=== PATIENT | male | born 1965 | race Caucasian/White ===

== ENCOUNTER 2021-08-13 21:19 | Inpatient (IN) | payer OTHER, SELFPAY ==
[2021-08-13 21:20] VITALS: BP 170/115; RESP 20; O2SAT 100; BMI 39.5
--- NOTE | 2021-08-13 21:36 | XRR_ITS ---
PROCEDURE INFORMATION: Exam: XR Chest Exam date and time: 08/13/2021 9:30 PM Age: 55 years old Clinical indication: Prior surgery; Surgery type: Cabg; Patient HX: Cardiac arrest. Cpr in progress and intubated prior to er arrival. TECHNIQUE: Imaging protocol: XR of the chest. Views: 1 view. COMPARISON: No relevant prior studies available. FINDINGS: Tubes, catheters and devices: Endotracheal tube terminates in the right main bronchus. Lungs: No evident consolidation limited by overlying support devices. Pleural spaces: No pleural effusion. No pneumothorax. Heart/Mediastinum: Moderate cardiomegaly. Bones/joints: Visualized osseous structures are intact. XR/XR chest 1V portable [id number] IMPRESSION: 1. Endotracheal tube terminates in the right main bronchus. 2. Moderate cardiomegaly.
--- NOTE | 2021-08-13 21:37 | ECG_ITS ---
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 Measurements Intervals [place] Rate: 107 P: 45 AL: 174 QRS: 33 QRSD: 207 T: 14 QT: 417 QTc: 557 Interpretive Statements Possible atrial flutter with 2-1 block and PVCs INTRAVENTRICULAR CONDUCTION DELAY [130+ ms QRS DURATION] INFERIOR MYOCARDIAL INFARCTION , OF INDETERMINATE AGE [40+ ms Q WAVE AND/OR ST/T ABNORMALITY IN II/aVF] No previous ECG available for comparison Electronically Signed On 08-13-2021 22:09:56 CDT by Jazmine Lal M.D. [id number]
[2021-08-13 21:42] LABS: ABG PCO2 50.3 mmHg (35-45); Arterial Blood Gas Hematocrit 43.4 % (42-52); Base Excess ABG -12.3 mmol/L (-2.0-2.0); Blood Gas Allen Test Pos; Blood Gas Sample Site Radial, left; Blood Gas Sample Type Arterial; HCO3 ABG 16.9 mmol/L (22-26); Oxygen Device AMBU
[2021-08-13 21:48] VITALS: RESP 30
[2021-08-13 21:49] LABS: Basophils # 0.1 10^3/uL (0.0-0.1); Basophils % 0.6 %; Eosinophils # 0.1 10^3/uL (0.0-0.8); Eosinophils % 0.7 %; Hematocrit 45.7 % (42.0-52.0); Hemoglobin 14.6 g/dL (11.7-16.6); Lymphocytes % 54.1 %; Mean Corpuscular HGB Conc 31.9 g/dL (30.0-36.0); Mean Corpuscular Hemoglobin 30.5 pg (28.0-34.0); Mean Corpuscular Volume 95.6 fl (80-94); Mean Platelet Volume 10.4 fL (7.4-10.4); Monocytes # 0.6 10^3/uL (0.2-0.9); Monocytes % 3.6 %; Neutrophils # 5.83 10^3/uL (1.8-7.7); Neutrophils % 34.8 %; Nucleated Red Blood Cells % 0.2 %; Platelet Count 279 10^3/cmm (130-400); Red Blood Count 4.78 10^6/uL (4.1-5.3); Red Cell Distribution Width 12.9 % (12.1-15.1); White Blood Count 16.7 10^3/uL (4.0-10.0)
[2021-08-13] MEDS: sodium chloride 0.9% 1,000 ML 999 ML IV ×2 (21:49→21:54)
[2021-08-13] MEDS: EPINEPHrine 2.5 MG in sodium chloride 0.9% 250 ML 6 MG IV (21:53)
[2021-08-13 22:00] LABS: Troponin(5th) Baseline 83 ng/L (0-15)
[2021-08-13 22:01] LABS: INR 1.19 (0.8-1.2)
--- NOTE | 2021-08-13 22:07 | USCV_ITS ---
Marco Antonio Hairston Age: 55 Gender: M : 1965 Exam Date: 08/13/2021 22:21 Ordering Phys: Riky Hall DO Technologist: Asim Phelps Exam Location: [facility] – [place] Indication: cardiac arrest BP: 136 / 95 HR: 111 Rhythm: Sinus Technical Quality: Adequate MEASUREMENTS (Male / Female) Normal Values 2D ECHO LV Diastolic Diameter PLAX 6.6 cm 4.2 - 5.9 / 3.9 - 5.3 cm LV Systolic Diameter PLAX 6.3 cm IVS Diastolic Thickness 1.3 cm 0.6 - 1.0 / 0.6 - 0.9 cm IVS Systolic Thickness 1.5 cm LVPW Diastolic Thickness 2.0 cm 0.6 - 1.0 / 0.6 - 0.9 cm LVPW Systolic Thickness 1.7 cm LVOT Diameter 2.0 cm LV Ejection Fraction 2D Teich 7.4 % LV Ejection Fraction MOD 2C -4.1 % LV Ejection Fraction 2C AL -3.4 % LA Diameter 3.1 cm LA Width 4.0 cm LA Height 6.4 cm Aorta at Sinotubular Diameter 3.2 cm IVC Diameter 1.3 cm M-MODE Aortic Annulus Diameter 3.8 cm LA Ao Ratio MM 0.9 MV E Point Septal Separation 3.2 cm DOPPLER Right Atrial Pressure 13.0 mmHg FINDINGS Left Ventricle Left ventricle is dilated. LV systolic function is severely reduced with EF of 20-25%. Severe global hypokinesis. Right Ventricle Right ventricle is dilated Right Atrium The right atrium is normal in size. Left Atrium The left atrium is normal in size. Mitral Valve Grossly normal without significant stenosis or prolapse. There is no mitral regurgitation. Aortic Valve Not well visualized Tricuspid Valve Grossly normal Pulmonic Valve Not well visualized Pericardium Normal pericardium without effusion. Aorta Normal ascending aorta dimension. IVC CONCLUSIONS Techically limited quality echocardiogram because of poor ultrasonic windows LV is dilated. LV systolic function is severely reduced with EF of 20-25%. Severe global hypokinesis. RV is dilated No comparison studies are available Reggie Wood MD (Electronically Signed) Final Date: 14 Aug 2021 20:43 S
[2021-08-13 22:08] LABS: Alanine Aminotransferase 233 U/L (0-41); Albumin Level 4.1 g/dL (3.5-5.2); Alkaline Phosphatase 113 IU/L (40-130); Blood Urea Nitrogen 12 mg/dL (6-20); Calcium 8.2 mg/dL (8.5-10.5); Carbon Dioxide 23 mmol/L (22-29); Chloride 100 mmol/L (98-107); Globulin 2.4 g/dL (1.3-4.6); Glucose 297 mg/dL (65-115); NT Pro B Type Natriuretic Pept 702 pg/mL (0-125); Osmolality Calculated 317 mOsm/kg (285-295); Sodium 148 mmol/L (136-145); Total Bilirubin 0.4 mg/dL (0.15-1.2); Total Protein 6.5 g/dL (6.6-8.7)
[2021-08-13 22:11] LABS: D Dimer 13.04 ug/mIFEU (0-0.59)
[2021-08-13 22:15] LABS: Anion Gap 28.5 (5-19); Aspartate Amino Transferase 182 U/L (0-40); Creatine Phosphokinase 321 U/L (39-308); Potassium 3.5 mmol/L (3.5-5.1)
--- NOTE | 2021-08-13 22:15 | W.ED.CPR ---
HPI - CPR General: Chief Complaint: Cardiac Arrest/CPR Stated Complaint: CARDIAC ARREST Time Seen by Provider: 08/13/21 21:36 Source: family and EMS History of Present Illness: 55-year-old male who collapsed at a local car race. He has a history of coronary disease status post coronary artery bypass grafting, three-vessel, sometime around a year and a half ago. He arrives unresponsive, with a pulse. In the field, he was found to initially have no pulse, and was not breathing. He was in ventricular fibrillation on first rhythm check. He has received multiple defibrillation shocks, multiple doses of epinephrine, amiodarone twice, and lidocaine once. He arrived with a rhythm and a pulse, which had been ongoing for around 10 minutes, which is the longest he had had a pulse since he went down. He had intermittent short durations of pulsatile rhythm in the hour between his arrest and arrival here. He had also received multiple doses of bicarbonate. MD complaint: found unresponsive and collapsed during activity Onset (ago): minute(s) Timing confirmed by: other Place: sports venue Bystander CPR performed: Yes AED applied by bystander/certified surgical tech/first assistant: Yes Shock advised: Yes Number of shocks delivered: >3 Initial findings in the field: unresponsive ROSC in the field: Yes Associated injuries: No Review of Systems General: Reports: ROS unobtainable due to endotracheal tube and ROS unobtainable due to medical condition Physical Exam Const: NUTRITIONAL APPEARANCE: obese HENMT: COMMON NORMALS: normocephalic, atraumatic and Normal external nose present HEAD & SCALP: normocephalic and atraumatic NOSE: Normal external nose present Eye: OTHER: Pupils are sluggish but equally reactive. Chest: CHEST: Yes Symmetrical chest wall rise Resp: EFFORT & INSPECTION: No tracheal deviation AUSCULTATION: rhonchi Cardio: OTHER: no pulse on arrival. Extremity: GENERAL: No deformity Neuro: CAL COMA SCALE: document GCS findings Cal coma scale eye opening: None [place] coma scale verbal response: None [place] coma scale motor response: None [place] coma scale total score: 3 Procedures Central Line Placement Right IJ: Time Out Performed: No Patient Placed on Monitor/Pulse Ox: Yes Prep: mask, gown and gloves Central Line Prep: Chlorhexidine scrub and sterile drapes applied Local Anesthetic: lidocaine 1% Amount of anesthesia used (mL): 3 Ultrasound Used for Placement: Yes Central Line Lumen Inserted: triple Post Procedure: sutured in place, good blood return, all ports aspirated, flushed, capped and sterile dressing applied Post Procedure X-Ray: tip of catheter in good position and no pneumothorax seen Patient Tolerated Procedure: well and no complications Course Consultations: Consultation #1: Nina Time: 21:36 Consultation #2: Diego Vital Signs: Vital signs: Vital Signs Temperature 98.6 F 08/14/21 02:42 Pulse Rate 108 H 08/14/21 02:42 Respiratory Rate 17 08/14/21 03:08 Blood Pressure 103/66 08/14/21 02:42 Pulse Oximetry 97 08/14/21 03:08 [facility] - Cardiac Arrest/CPR Medical Decision Making Who was [id number] gentleman with a history of coronary disease and down at a local car race. He had received resuscitative efforts for about an hour in the field prior to his arrival here. He had had multiple defibrillations, multiple doses of epinephrine, multiple doses of amiodarone, and a dose of lidocaine for around 10 minutes prior to arrival, he had had an organized rhythm and a pulse. This was lost shortly after his arrival in the trauma room. Chest compressions were resumed immediately, and the patient was found to be in V. fib. He was given another defibrillation, and another milligram of epinephrine. At the next rhythm check, he appeared to be in PEA. ACLS protocol was followed. At the next rhythm check, PEA continued. By the third rhythm check, the patient resumed an organized rhythm with a pulse. The patient was given a fluid bolus. He was given bicarbonate. Chest x-ray was shot, showing intubation with an ET tube that was a little deep. It was retracted to an appropriate level above the mack. Blood pressure was obtained. EKG showed sinus tachycardia with an significant intraventricular conduction delay and Q waves in the inferior leads. EKG was sent to cardiology shortly after the patient arrived and was resuscitated. Recommendations at that point were medical management. First troponin was elevated, delta troponin at 2 hours is 257.6. Initial pH was 7.135. The patient began overbreathing the ventilator, move his hands, and shake his head. He had to be sedated for this. Versed and fentanyl were used. Cardiology was further consulted, and recommendations were antiarrhythmic, with amiodarone, but if possible, lidocaine would be favorable over amiodarone. We do not have a lidocaine infusion protocol however. Anticoagulation was suggested, so after CT of the head was deemed negative for hemorrhage, heparin drip was ordered. Central line was placed. D-dimer initially was 16, so the patient underwent CTA of the chest to rule out massive PE as a cause of cardiac arrest, which was negative. It did show significant pulmonary edema. Bedside echo was performed. Cardiology was aware of this as well. Continued recommendations were medical management, anticoagulation, antiarrhythmic, and to see how he fares neurologically he went to the ICU. At 1 point, he had a brief episode of ventricular fibrillation again, for which he was cardioverted, and given epinephrine. ROSC was obtained after 1 round of CPR. No other instances of arrhythmia or pulselessness were witnessed in the ER following that episode Lab Data : 08/13/21 21:30 08/13/21: Radiology Impressions Head CT 08/13/21 22:18 IMPRESSION: There are no acute intracranial findings. Chest CTA 08/13/21 23:28 IMPRESSION: 1. There is no evidence for pulmonary emboli. 2. Findings suggesting pulmonary edema. Laboratory Results WBC 16.7 10^3/uL (4.0-10.0) H 08/13/21: RBC 4.78 10^6/uL (4.1-5.3) 08/13/21: Hgb 14.6 g/dL (11.7-16.6) 08/13/21: Hct 45.7 % (42.0-52.0) 08/13/21: MCV 95.6 fl (80-94) H 08/13/21: MCH 30.5 pg (28.0-34.0) 08/13/21: MCHC 31.9 g/dL (30.0-36.0) 08/13/21: RDW 12.9 % (12.1-15.1) 08/13/21: Plt Count 279 10^3/cmm (130-400) 08/13/21: MPV 10.4 fL (7.4-10.4) 08/13/21: Neut % (Auto) 34.8 % 05/27/22 21:30 Lymph % (Auto) 54.1 % 08/13/21 21:30 [place] % (Auto) 3.6 % 08/13/21 21:30 Eos % (Auto) 0.7 % 08/13/21 21:30 Baso % (Auto) 0.6 % 08/13/21 21:30 Neut # (Auto) 5.83 10^3/uL (1.8-7.7) 08/13/21 21: Lymph # (Auto) 9.0 10^3/uL (0.8-4.8) H 08/13/21 21:30 [place] # (Auto) 0.6 10^3/uL (0.2-0.9) 08/13/21 21: Eos # (Auto) 0.1 10^3/uL (0.0-0.8) 08/13/21 21: Baso # (Auto) 0.1 10^3/uL (0.0-0.1) 08/13/21 21: Nucleated RBC % (auto) 0.2 % 08/13/21 21: Nucleated RBCs # 0.0 /100WBC 08/13/21 21:30 PT 15.40 SECONDS (12.1-14.9) H 08/13/21 21: INR 1.19 (0.8-1.2) 08/13/21 21: APTT 27.8 SECONDS (23.9-36.7) 08/13/21 21: D-Dimer 13.04 ug/mIFEU (0-0.59) H 08/13/21 21: Specimen Type Arterial 08/13/21 21:31 Sample Site Radial, left 08/13/21: ABG pCO2 50.3 mmHg (35-45) H 08/13/21 21: ABG pO2 55.0 mmHg (80.0-100.0) L 08/13/21: ABG HCO3 16.9 mmol/L (22-26) L 08/13/21: ABG Base Excess -12.3 mmol/L (-2.0-2.0) L 08/13/21 21: Praveen Test Pos 08/13/21 21: Hematocrit 43.4 % (42-52) 08/13/21 21:31 O2 Delivery Device Ambu 08/13/21 21:31 Framing Inspector ID Buttr 08/13/21 21:31 Sodium 148 mmol/L (136-145) H 08/13/21 21:30 Potassium 3.5 mmol/L (3.5-5.1) 08/13/21 21:30 Chloride 100 mmol/L (98-107) 08/13/21 21:30 Carbon Dioxide 23 mmol/L (22-29) 08/13/21 21:30 Anion Gap 28.5 (5-19) H 08/13/21 21:30 BUN 12 mg/dL (6-20) 08/13/21 21:30 Creatinine 1.1 mg/dL (0.7-1.2) 08/13/21 21:30 GFR Calculation 69.0 mL/min (90-130) L 08/13/21 21:30 Glucose 297 mg/dL (65-115) H 08/13/21 21:30 Estimat Average Glucose 111 08/13/21 21:30 Hemoglobin A1c 5.5 % (4.0-6.0) 08/13/21 21:30 Calculated Osmolality 317 mOsm/kg (285-295) H 08/13/21 21:30 Lactate 9.3 mmol/L (0.5-2.2) H* 08/13/21 22:10 Calcium 8.2 mg/dL (8.5-10.5) L 08/13/21 21:30 Total Bilirubin 0.4 mg/dL (0.15-1.2) 08/13/21 21:30 AST 182 U/L (0-40) H 08/13/21 21:30 ALT 233 U/L (0-41) H 08/13/21 21:30 Alkaline Phosphatase 113 IU/L (40-130) 08/13/21 21:30 Creatine Kinase 321 U/L (39-308) H* 08/13/21 21:30 Troponin T Baseline 83 ng/L (0-15) H 08/13/21 21:30 Troponin T 120 Minute 340.6 ng/L (0-15) H 08/14/21 00:00 Delta Troponin T 257.6 ABS# (0-10) H* 08/14/21 00:00 NT-Pro-B Natriuret Pep 702 pg/mL (0-125) H 08/13/21 21: Total Protein 6.5 g/dL (6.6-8.7) L 08/13/21 21: Albumin 4.1 g/dL (3.5-5.2) 08/13/21 21: Globulin 2.4 g/dL (1.3-4.6) 08/13/21 21:30 Urine Color Yellow (Yellow) 08/13/21 23:30 Urine Appearance Sl hazy (CLEAR) 08/13/21 23:30 Urine pH 7 (5-7) 08/13/21 23:30 Ur Specific [place] 1.010 (1.005-1.030) 08/13/21 23: Urine Protein 3+ (Negative) H 08/13/21 23: Urine Glucose (UA) 2+ (Normal) H 08/13/21 23: Urine Ketones Negative (Negative) 08/13/21 23: Urine Blood 3+ (Negative) H 08/13/21 23: Urine Nitrate Negative (Negative) 08/13/21 23: Urine Bilirubin Neg (Negative) 08/13/21 23:30 Urine Urobilinogen Norm mg/dL (Negative) 08/13/21 23:30 Ur Leukocyte Esterase Negative (Negative) 08/13/21 23: Urine RBC >100 /hpf (0-2) H 08/13/21 23:30 Urine WBC >100 /hpf (0-5) H 08/13/21 23:30 Ur Squamous Epith Cells 0-4 /hpf (0-5) H 08/13/21 23: Amorphous Sediment Not Reportable 08/13/21 23: Urine Bacteria 4+ /hpf (NONE) H 08/13/21 23:30 Critical Care Time Critical Care Time: Critical Care Time: Yes Total Critical Care Time: 75 Attestation: This case had a high probability of a clinically significant, sudden, or life threatening deterioration of this patient's condition which required my full and direct attention, intervention and personal management. Time is independent of any procedures performed including central line placement. Discharge Plan Discharge Patient Disposition: Admitted As Inpatient Admit Provider: Yasmine Cortez Clinical Impression: Cardiac arrest Condition: Stable Coding Level of Care Code ED Director Of Teaching And Learning for Chg Fwd Exam Detailed
--- NOTE | 2021-08-13 22:18 | CTR_ITS ---
PROCEDURE INFORMATION: Exam: CT Head Without Contrast Exam date and time: 08/13/2021 11:52 PM Age: 55 years old Clinical indication: Other: Unresponsive; Additional info: Unresponsive. Post code TECHNIQUE: Imaging protocol: Computed tomography of the head without contrast. Radiation optimization: All CT scans at this facility use at least one of these dose optimization techniques: automated exposure control; mA and/or kV adjustment per patient size (includes targeted exams where dose is matched to clinical indication); or iterative reconstruction. COMPARISON: No relevant prior studies available. RADIATION DOSE METRICS: Total DLP (mGy-cm): 8.61 FINDINGS: Tubes, catheters and devices: An endotracheal tube and orogastric tube are present. Brain: Normal. No hemorrhage. Unremarkable white matter. No mass effect. Cerebral ventricles: No ventriculomegaly. Paranasal sinuses: Minimal fluid and mucoperiosteal thickening is seen within the ethmoidal sinuses. Mastoid air cells: There is partial opacification of the left mastoid sinuses. Bones/joints: Unremarkable. No acute fracture. Soft tissues: Unremarkable. CT/CT head wo con* [id number] IMPRESSION: There are no acute intracranial findings.
[2021-08-13 22:22] LABS: Slide Review Slide Review Perform
--- NOTE | 2021-08-13 22:27 | XRR_ITS ---
PROCEDURE INFORMATION: Exam: XR Chest Exam date and time: 08/13/2021 10:06 PM Age: 55 years old Clinical indication: Device placement; Ett placement (vent status); Prior surgery; Surgery type: Cabg; Patient HX: Verify et placement due to mild dislodgement. ; Additional info: Verify tube placement TECHNIQUE: Imaging protocol: XR of the chest. Views: 1 view. COMPARISON: CR XR chest 1V portable [id number] 08/13/2021 9:30 PM FINDINGS: Tubes, catheters and devices: An endotracheal tube is placed with its tip approximately 5 cm from the mack. Transcutaneous pacemaker leads overlie the chest. EKG leads overlie the chest. A nasogastric tube is present with its tip at least in the proximal stomach. Lungs: There is indistinctness of the pulmonary vasculature, peribronchial cuffing and bilateral increased interstitial opacities, findings suggesting pulmonary edema. Pleural spaces: Unremarkable. No pleural effusion. No pneumothorax. Heart/Mediastinum: The cardiac profile is prominent. Bones/joints: Unremarkable. XR/XR chest 1V portable [id number] IMPRESSION: 1. The endotracheal tube tip is approximately 5 cm from the mack. 2. Findings suggesting pulmonary edema.
[2021-08-13] MEDS: midazolam 1 mg/mL INJ 2 mL 4 MG IVP (22:33)
[2021-08-13 22:36] LABS: Partial Thromboplastin Time 27.8 SECONDS (23.9-36.7)
[2021-08-13 22:39] VITALS: BP 136/95; PULSE 100; RESP 14; O2SAT 95
[2021-08-13 22:46] LABS: Lactate (Lactic Acid level) 9.3 mmol/L (0.5-2.2)
--- NOTE | 2021-08-13 22:56 | XRR_ITS ---
PROCEDURE INFORMATION: Exam: XR Chest Exam date and time: 08/13/2021 11:00 PM Age: 55 years old Clinical indication: Other vascular access device placement or adjustment; Central line, non-tunnelled; Additional info: Central line placement TECHNIQUE: Imaging protocol: XR of the chest. Views: 1 view. COMPARISON: CR XR chest 1V portable [id number] 08/13/2021 10:06 PM FINDINGS: Tubes, catheters and devices: An endotracheal tube is placed with its tip 5.8 cm from the mack. A right internal jugular vein central venous line is placed with its tip at the level of the superior vena cava. A nasogastric tube is present with its tip at least in the proximal stomach. Transcutaneous pacemaker lead overlies the left heart border. EKG leads overlie the chest. Lungs: There is continued prominence and indistinctness of the central pulmonary vasculature, peribronchial cuffing and increased interstitial opacities, findings compatible with pulmonary edema. Pleural spaces: Unremarkable. No pleural effusion. No pneumothorax. Heart/Mediastinum: Unremarkable. No cardiomegaly. Bones/joints: Status post median sternotomy. XR/XR chest 1V portable [id number] IMPRESSION: 1. Right internal jugular vein central venous line placed with tip at the level of the superior vena cava. Otherwise stable life support tubing. 2. Findings compatible with pulmonary edema.
--- NOTE | 2021-08-13 23:25 | XRR_ITS ---
PROCEDURE INFORMATION: Exam: XR Chest Exam date and time: 08/13/2021 11:17 PM Age: 55 years old Clinical indication: Other: Post code TECHNIQUE: Imaging protocol: XR of the chest. Views: 1 view. COMPARISON: CR (CHEST, ) 08/13/2021 11:00 PM FINDINGS: Tubes, catheters and devices: Endotracheal tube tip is approximately 4 cm from the mack. Stable positioning of life support tubing. Transcutaneous pacemaker lead overlies the left cardiac border. Lungs: Prominence and indistinctness of the pulmonary vasculature, peribronchial cuffing and increased interstitial opacities compatible with pulmonary edema. This finding is slightly worse compared with earlier chest radiographs today. Pleural spaces: Unremarkable. No pleural effusion. No pneumothorax. Heart/Mediastinum: Unremarkable. No cardiomegaly. Bones/joints: Unremarkable. XR/XR chest 1V portable [id number] IMPRESSION: 1. Worsening pulmonary edema 2. Stable life support tubing
--- NOTE | 2021-08-13 23:28 | CTR_ITS ---
PROCEDURE INFORMATION: Exam: CTA Chest With Contrast Exam date and time: 08/13/2021 11:56 PM Age: 55 years old Clinical indication: Shortness of breath; Prior surgery; Additional info: Chest pain TECHNIQUE: Imaging protocol: Computed tomographic angiography of the chest with contrast. 3D rendering (Not supervised by radiologist): MIP and/or 3D reconstructed images were created by the technologist. Radiation optimization: All CT scans at this facility use at least one of these dose optimization techniques: automated exposure control; mA and/or kV adjustment per patient size (includes targeted exams where dose is matched to clinical indication); or iterative reconstruction. Contrast material: OMNI 350; Contrast volume: 40 ml; Contrast route: INTRAVENOUS (IV); COMPARISON: CR XR chest 1V portable [id number] 08/13/2021 11:17 PM RADIATION DOSE METRICS: Total DLP (mGy-cm): 901.08 FINDINGS: Tubes, catheters and devices: A central line is placed via the right internal jugular vein with its tip at the level of the superior cavoatrial junction. An endotracheal tube is placed with its tip approximately 5 cm from the mack. A nasogastric tube is present with its tip in the proximal stomach. Pulmonary arteries: There is mild prominence of the pulmonary vasculature. Aorta: Unremarkable. No aortic aneurysm. No aortic dissection. Lungs: Ground-glass opacities are seen in the upper hemithoraces bilaterally with strandy and patchy opacities and some consolidation seen in the hemithoraces posteriorly, findings that suggest pulmonary edema. Pleural spaces: Unremarkable. No pneumothorax. No pleural effusion. Heart: Diffuse calcifications are seen within the coronary arteries. Lymph nodes: Unremarkable. No enlarged lymph nodes. Bones/joints: Unremarkable. No acute fracture. Soft tissues: Unremarkable. CT/CT angio chest PE protcl [id number] IMPRESSION: 1. There is no evidence for pulmonary emboli. 2. Findings suggesting pulmonary edema.
--- NOTE | 2021-08-13 23:37 | ECG_ITS ---
[facility] Test Date: 2021-08-13 Pat Name: Marco Antonio Hairston Department: Room: Gender: Male Resident Assistant Cna: : 1965 Requested By: Riky Lopes Order Number: [id number] Estrada MD: Reggie Wood M.D. Measurements Intervals [place] Rate: 104 P: 43 MS: 193 QRS: 35 QRSD: 174 T: 15 QT: 386 QTc: 509 Interpretive Statements SINUS TACHYCARDIA WITH OCCASIONAL VENTRICULAR PREMATURE COMPLEXES POSSIBLE LEFT ATRIAL ENLARGEMENT [-0.1mV P-WAVE IN V1/V2] INTRAVENTRICULAR CONDUCTION DELAY [130+ ms QRS DURATION] INFERIOR MYOCARDIAL INFARCTION , OF INDETERMINATE AGE [40+ ms Q WAVE AND/OR ST/T ABNORMALITY IN II/aVF] Compared to ECG 08/13/2021 21:30:24 No significant changes Electronically Signed On 08-15-2021 20:42:02 CDT by Reggie Wood M.D. [id number] f
[2021-08-14] VITALS (119 sets, daily range): BP systolic 77–166; BP diastolic 54–123; PULSE 82–120; RESP 14–21; TEMP 35.7–38.8; O2SAT 91–100
[2021-08-14 00:02] LABS: Add Urine Microscopic? YES; Bilirubin Urine Neg (Negative); Blood Urine 3+ (Negative); Glucose Urine UA 2+ (Normal); Ketones Urine Negative (Negative); Leukocyte Esterase Urine Negative (Negative); Nitrate Urine Negative (Negative); Protein Urine 3+ (Negative); Urine Appearance SL Hazy (CLEAR); Urine Color Yellow (Yellow); Urobilinogen Urine Norm (Negative); pH Urine 7 (5-7)
[2021-08-14] MEDS: iohexol 350 mg/mL 100 mL Btl IV (00:02)
[2021-08-14 00:05] LABS: Add Urine Culture? Yes; Bacteria Urine 4+ /hpf; RBC Urine >100 /hpf (0-2); Squamous Epithelial Cell Urine 0-4 /hpf (0-5); WBC Urine >100 /hpf (0-5)
--- NOTE | 2021-08-14 00:14 | PC.NURSE ---
VF @ 2311- pt in VF on the monitor. Compressions started, defib 200j per Dr Hall @ 2312, Epi 1mg iv push given. Compressions continued for 2 minutes. Pulse check @ 2314- pt found to have a pulse. IV amiodarone 0.5mcg/min and Epi 1mcg/min continued through this time. Present in room Dr Hall, Dr Juan, Jeane RN, Braxton, rn, Pernell, rn and myself. Chest xray, ekg taken and orders for CTA placed by provider. Respiratory therapy, Jenae OVERTON, Braxton RN , and myself transported the patient for CT scan. Pt was given Fentanyl bolus 100mcg given per verbal order Dr Hall for vent compliance. Vitals monitored throughout CT scan.
[2021-08-14 00:45] LABS: Troponin 5 2HR 340.6 ng/L (0-15); Troponin 5 2HR Delta 257.6 ABS# (0-10)
[2021-08-14] MEDS: heparin drip 25,000 UNIT/500 ML PREMIX 35.56 UNIT IV (01:16)
--- NOTE | 2021-08-14 01:36 | P.HP_ITS ---
Providers/Chief Complaint Admitting Physician: Yasmine Cortez DO Chief Complaint: CARDIAC ARREST History of Present Illness Patient is a 55-year-old male who was transferred to the emergency department after going into cardiac arrest while at the car races. Per documentation from the emergency department physician, the patient received many rounds of CPR including defibrillation, epinephrine, and chest compressions. Unfortunately at the time of my encounter with the patient he is sedated and intubated. He presents for further evaluation Review of Systems General: Reports: 10 or more systems reviewed and unremarkable except in HPI and below Medications/Allergies Allergies Allergy/AdvReac Type Severity Reaction Status Date / Time No Known Allergies Allergy Verified 08/13/21 21:42 Vitals/I&O/Wt Last Vital Signs Pulse 100 08/13/21 22:39 Resp 21 H 08/14/21 01:10 BP 136/95 08/13/21 22:39 Pulse Ox 95 08/13/21 22:39 08/13/21 08/13/21 08/14/21 14:59 22:59 06:59 Intake Total 83.25 / 83.25 2.75 / 86.00 Balance 83.25 / 83.25 2.75 / 86.00 Weight last 48 hrs Weight 127.006 kg Physical Exam Narrative: General: -Alert -No acute distress -No dyspnea -No tachypnea Head: -Atraumatic -Normocephalic Eyes: -Pupils equally round and reactive to light and accommodation -Extraocular muscles intact Neurological: -Cranial nerves II-XII intact Neck: -No jugular venous distention -No thyromegaly -No cervical lymphadenopathy Heart: -Regular rate -Regular rhythm -No murmurs -No gallops -No rubs Lungs: -No wheeze -No rhonchi -No rales ? Abdomen: -Normal bowel sounds in all four quadrants -No rebound -No guarding -No tenderness Extremities: -2/4 pulse in all four extremities -No clubbing -No cyanosis -No edema -No calf tenderness present bilaterally -Negative Vasyl?s sign bilaterally Musculoskeletal: -5/5 bilateral upper extremity strength -5/5 bilateral lower extremity strength -Sensorium of bilateral upper extremities are equal and intact -Sensorium of bilateral lower extremities are equal and intact ? Additional Details / Additional Findings / Exceptions / Miscellaneous: Urinary Catheter Management: Gordon: Cath Placed During This Visit: yes Urinary Catheter Date of Insertion: 08/13/21 Urinary Catheter Time of Insertion: 21:45 Data : 08/13/21 21:30 08/13/21 21:30 A&P Assessment and plan (1) Cardiac arrest: Status: Acute Plan Status post cardiac arrest with successful resuscitation 3 resultant intubation. Uncertain etiology at this time. As noted that patient was in ventricular fibrillation. The emergency department physician has notified me that the customer solutions architect has evaluate the patient the emergency department. Sedation with IV fentanyl per protocol plus IV Versed per protocol. Will continue IV amiodarone per protocol results of IV Levophed drip per protocol. Will check chest x-ray?portable daily while the patient remains intubated. Will check ABG intermittently and adjust mechanical ventilation settings accordingly. Turn every 2 hours. Current ventilator settings as of 1:38 AM on August 06, 2021: Mode: CMV. Rate: 14. Tidal volume: 550. FiO2: 100%. PEEP: 8. Elevated troponin, query ACS. Patient has known history of coronary artery disease, status post CABG. Will monitor patient on telemetry and checks her cardiac enzymes. Check TSH, free T4, magnesium level. In the morning we will recheck EKG and check fasting lipid panel. IV heparin drip per protocol plus aspirin 81 Mill grams NG daily. No beta-hernan or nitroglycerin due to hypotension necessitating Levophed. No statin at this time due to transaminitis which may be due to shock liver and/or rhabdomyolysis from resuscitation. Echocardiogram pending Hyponatremia. We will monitor sodium level intermittently. No IV fluids at this time given the fact that the patient has pulmonary edema Coagulopathy. Will monitor PT/INR periodically Pneumonia/concern for aspiration. Blood culture ?2 pending. Azithromycin 500 Mill grams IV daily plus Rocephin 1 g IV daily Microscopic hematuria. Outpatient follow-up with urology upon discharge Macrocytosis. TSH, free T4, B12, folate level pending Hyperglycemia. Query diabetes versus acute stress reaction. Hemoglobin A1c pending. Will check fasting glucose every before meals and at bedtime and provide insulin sliding scale Obesity. The patient will be counseled regarding lifestyle modification Transaminitis. This may be due to shock liver from cardiac arrest and/or rhabdomyolysis due to cardiac resuscitation. Will monitor LFTs periodically with CMP along with creatine kinase. Right upper quadrant ultrasound pending Coronary edema. Strict I/O. Daily weight. Echo cardiac pending. IV Lasix drip at 2.5 Mill grams per hour DVT Proflex is. IV heparin drip per protocol Attestations Medical Necessity Statement*: The patient's anticipated length of stay is >2 midnights for further evaluation of his cardiopulmonary arrest Coding Level of Care Code Acute Ice Puller for [facility] Diagnoses Cardiac arrest I46.9
[2021-08-14] MEDS: midazolam 1 mg/mL INJ 2 mL 4 MG IVP (01:54)
[2021-08-14 02:30] LABS: Ammonia 58 umol/L (16-60)
[2021-08-14 02:38] LABS: Estmated Average Glucose 111; Hemoglobin A1C 5.5 % (4.0-6.0)
--- NOTE | 2021-08-14 02:39 | USR_ITS ---
PROCEDURE INFORMATION: Exam: US Abdomen, Limited; Right Upper Quadrant Exam date and time: 08/14/2021 3:45 AM Age: 55 years old Clinical indication: Abnormal findings; Abnormal lab test; Elevated liver enzymes; Additional info: Ruq US: Elevated lft TECHNIQUE: Imaging protocol: US abdomen. Real time ultrasound with image documentation. Limited exam focused on the right upper quadrant. COMPARISON: CT angio chest PE protcl [id number] 08/13/2021 11:56 PM FINDINGS: Liver: Normal. No masses. Gallbladder: Normal. No gallstones. There is no gallbladder wall thickening. Biliary ducts: Normal. No stones. No dilation. Pancreas: Visualized pancreas is unremarkable. Right kidney: Normal. No mass. No hydronephrosis. US/US abdomen limited [id number] IMPRESSION: No acute findings.
--- NOTE | 2021-08-14 02:40 | XRR_ITS ---
PROCEDURE INFORMATION: Exam: XR Chest Exam date and time: 08/14/2021 2:51 AM Age: 55 years old Clinical indication: Other: Chest assymetry; Prior surgery; Surgery type: Cabg; Patient HX: Visual assymetrical appearance of anterior chest wall. Central line and og in place. Intubated. ; Additional info: Chest assymmetry TECHNIQUE: Imaging protocol: XR of the chest. Views: 1 view. COMPARISON: CR XR chest 1V portable [id number] 08/13/2021 11:17 PM FINDINGS: Tubes, catheters and devices: An endotracheal tube is placed with its tip approximately 4 cm from the mack. An orogastric tube is present, its tip at least extending into the proximal stomach. A right internal jugular vein central venous line is placed with its tip at the level of the superior cavoatrial junction. Transcutaneous pacemaker lead overlies the left cardiac border. EKG leads overlie the chest. Lungs: There is mild prominence of the pulmonary vasculature with increased interstitial opacities present in the mid lower hemithoraces, findings suggesting pulmonary edema. Some strandy opacities are present in the lower hemithoraces likely representing atelectasis. Pleural spaces: The left hemidiaphragm is obscured possibly secondary to a small left pleural effusion. Heart/Mediastinum: Unremarkable. No cardiomegaly. Bones/joints: Unremarkable. XR/XR chest 1V portable [id number] IMPRESSION: 1. Mildly prominent pulmonary vasculature increased interstitial opacities, findings suggesting pulmonary edema. 2. Strandy opacities in the lung bases likely represents atelectasis. 3. Probable small left pleural effusion 4. Stable placement of life support tubing.
[2021-08-14 02:50] LABS: Folate Level 13.3 ng/mL (4.5-32.2)
[2021-08-14 02:51] LABS: Lipase 28 U/L (13-60); Magnesium 1.9 mg/dL (1.7-2.3); Thyroid Stimulating Hormone 2.88 uIU/mL (0.27-4.20); Vitamin B12 492 pg/mL (232-1245)
[2021-08-14 03:18] LABS: Free T4 Free Thyroxine 1.47 ng/dL (0.82-1.77)
--- NOTE | 2021-08-14 03:37 | ECG_ITS ---
[facility] Test Date: 2021-08-13 Pat Name: Marco Antonio Hairston Department: Room: Gender: Male Director Of Income Tax: : 1965 Requested By: Riky Lopes Order Number: [id number] Estrada MD: Reggie Wood M.D. Measurements Intervals [place] Rate: 123 P: CA: QRS: 43 QRSD: 168 T: -5 QT: 343 QTc: 492 Interpretive Statements ATRIAL FLUTTER WITH RAPID VENTRICULAR RESPONSE WITH ABERRANT CONDUCTION OR VENTRICULAR PREMATURE COMPLEXES INTRAVENTRICULAR CONDUCTION DELAY [130+ ms QRS DURATION] INFERIOR MYOCARDIAL INFARCTION , OF INDETERMINATE AGE [40+ ms Q WAVE AND/OR ST/T ABNORMALITY IN II/aVF] Compared to ECG 08/13/2021 22:36:44 Sinus tachycardia no longer present Myocardial infarct finding still present Electronically Signed On 08-15-2021 20:41:38 CDT by Reggie Wood M.D. [id number]
[2021-08-14 03:38] LABS: Basophils # 0.1 10^3/uL (0.0-0.1); Basophils % 0.2 %; Hematocrit 46.6 % (42.0-52.0); Lymphocytes # 1.7 10^3/uL (0.8-4.8); Lymphocytes % 7.3 %; Mean Corpuscular HGB Conc 32.2 g/dL (30.0-36.0); Mean Corpuscular Hemoglobin 29.8 pg (28.0-34.0); Mean Corpuscular Volume 92.6 fl (80-94); Mean Platelet Volume 9.9 fL (7.4-10.4); Monocytes # 2.1 10^3/uL (0.2-0.9); Monocytes % 8.9 %; Neutrophils # 19.54 10^3/uL (1.8-7.7); Neutrophils % 82.5 %; Nucleated Red Blood Cells % 0 %; Platelet Count 332 10^3/cmm (130-400); Red Blood Count 5.03 10^6/uL (4.1-5.3); Red Cell Distribution Width 13.2 % (12.1-15.1); White Blood Count 23.7 10^3/uL (4.0-10.0)
[2021-08-14 03:42] LABS: ABG PCO2 47.7 mmHg (35-45); ABG PH Result 7.29 (7.35-7.45); Arterial Blood Gas Hematocrit 49.2 % (42-52); Blood Gas Allen Test Pos; Blood Gas Sample Site Radial, right; Blood Gas Sample Type Arterial; Carboxyhemoglobin 0.5 %THgb (0.4-20.1); Ionized Calcium Level - ABG 1.1 mmol/L (1.1-1.4); Methemoglobin 0.8 % (0.4-1.5); Oxygen Saturation ABG 97.2; PO2 ABG 93.7 mmHg (80.0-100.0); Potassium Level - ABG 3.6 mmol/L (3.5-5.0)
[2021-08-14 03:43] LABS: Alveolar-Arterial Oxygen Gradi 72.7 mmHg (5-10); Blood Gas Operator Identificat JB; Blood Gas Tidal Volume 0.55; Oxygen Device VENT
[2021-08-14 03:52] LABS: INR 1.14 (0.8-1.2)
[2021-08-14 04:01] LABS: Alanine Aminotransferase 284 U/L (0-41); Albumin Level 4.4 g/dL (3.5-5.2); Alkaline Phosphatase 101 IU/L (40-130); Aspartate Amino Transferase 292 U/L (0-40); Blood Urea Nitrogen 21 mg/dL (6-20); Calcium 8.3 mg/dL (8.5-10.5); Carbon Dioxide 25 mmol/L (22-29); Chloride 103 mmol/L (98-107); Chol HDL Ratio 3.49 mg/dL (1.0-5.00); Cholesterol 143 mg/dL (0-200); Globulin 2.5 g/dL (1.3-4.6); Glomerular Filtration Rate 52.2 mL/min (90-130); Glucose 133 mg/dL (65-115); HDL Cholesterol 41 mg/dL (60-100); LDL Cholesterol Calculated 78 mg/dL (50-129); Osmolality Calculated 303 mOsm/kg (285-295); Sodium 144 mmol/L (136-145); Total Bilirubin 1.1 mg/dL (0.15-1.2); Total Protein 6.9 g/dL (6.6-8.7); Triglycerides 122 mg/dL (0-150)
[2021-08-14 04:02] LABS: Anion Gap 19.6 (5-19); Potassium 3.6 mmol/L (3.5-5.1)
[2021-08-14 04:18] LABS: Troponin 5 6HR 1538 ng/L (0-15); Troponin 5 6HR Delta 1455 ng/L (0-12)
[2021-08-14 04:53] LABS: Amphetamines Screen Urine Negative (Negative); Barbiturates Screen Urine Negative (Negative); Benzodiazepines Screen Urine Negative (Negative); Cocaine Screen Urine Negative (Negative); Opiate Screen Urine Negative (Negative); PCP Screen Urine Negative (Negative); THC Screen Urine Negative (Negative)
[2021-08-14] MEDS: azithromycin 500 MG in sodium chloride 0.9% 250 ML 250 MG IV (05:20)
--- NOTE | 2021-08-14 06:00 | XRR_ITS ---
PROCEDURE INFORMATION: Exam: XR Chest Exam date and time: 08/14/2021 7:56 AM Age: 55 years old Clinical indication: Shortness of breath. Open heart surgery. Respiratory failure. TECHNIQUE: Imaging protocol: XR of the chest. Views: 1 view. COMPARISON: CR (CHEST, ) 08/14/2021 2:51 AM FINDINGS: Tubes, catheters and devices: Right central venous access device with tip in the SVC. Endotracheal tube with tip approximately 2.8 cm above the mack. Nasogastric tube with side port at the GE junction. Recommend advancement. Lungs: Possible patchy opacity at the medial right base which may reflect pneumonia. Pleural spaces: No pleural effusion. No pneumothorax. Heart/Mediastinum: The cardiac silhouette is prominently enlarged. No gross evidence of pneumomediastinum. Bones/joints: Median sternotomy wires are noted. No gross fracture. XR/XR chest 1V portable [id number] IMPRESSION: 1. Nasogastric tube with side port at the GE junction. Recommend advancement. 2. Possible patchy opacity at the medial right base which may reflect pneumonia. 3. Prominent cardiomegaly.
--- NOTE | 2021-08-14 06:30 | PC.NURSE ---
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
[2021-08-14 07:10] LABS: Glucose Point of Care 129 mg/dL (70-110)
--- NOTE | 2021-08-14 07:44 | P.CONIM_ITS ---
Providers/Reason For Consult Consulting Physician/Specialty*: Reggie Wood MD/ Cardiology Reason for Consult*: Cardiac arrest Requesting Physician: Dr Hall Attending Physician: Talha Dickson History of Present Illness History of Present Illness Marco Antonio Hairston is a 55 year old male with past medical history of coronary artery disease with three-vessel bypass performed in [place] about 2 years ago was here in town for a recent event and lost consciousness. He was f ound to be pulseless and not breathing. EMS arrived at the scene and started CPR. CPR continued for over 1 hour. Brief episode where patient had pulse in between. Initial rhythm was found to be V. fib per EMS however he later had PEA. In the emergency room he had another event of V. fib however was brief and converted back to sinus rhythm with 1 shock. Patient did not have ST elevation on post arrest EKG. Has interventricular conduction delay. Initial troponin was 82. ECHO performed in the ER shows severely reduced cardiac function Review of Systems General: Reports: ROS unobtainable due to endotracheal tube and ROS unobtainable due to mental status Medications/Allergies Allergies Allergy/AdvReac Type Severity Reaction Status Date / Time Penicillins Allergy ALGY-Anaphy Verified 08/14/21 08:43 laxis Current Medications Generic Name Dose Route Start Last Admin Trade Name Freq PRN Reason Stop Dose Admin Azithromycin 500 mg/ Sodium 250 mls @ 250 mls/hr 08/14/21 02:39 08/14/21 06:31 Chloride IV Infused Q24H ENRIQUE Infusion Protocol Norepinephrine Bitartrate 4 mg 254 mls @ 0 mls/hr 08/14/21 02:39 08/14/21 07:23 / Dextrose IV 8 mcg/min .Q0M ENRIQUE 30.48 mls/hr Titration Protocol Per Protocol Fentanyl 2,500 mcg/ Sodium 250 mls @ 0 mls/hr 08/14/21 07:15 08/14/21 07:21 Chloride IV 100 mcg/hr .Q0M ENRIQUE 10 mls/hr Administration Protocol Per Protocol Insulin Human Lispro 0 unit 08/14/21 08:00 08/14/21 07:23 Insulin Lispro 100 Unit/1 Ml SUBCUT Not Given WM&BEDTIME ENRIQUE Protocol PFSH Acute PFSH: Medical History Chronic anticoagulation Coronary artery disease Paroxysmal A-fib Surgical History Hx of CABG [facility] Vitals/I&O/Wt Last Vital Signs Temp 101.8 F H 08/14/21 07:00 Pulse 99 08/14/21 07:00 Resp 16 08/14/21 07:00 BP 88/70 08/14/21 07:00 Pulse Ox 96 08/14/21 07:00 08/13/21 08/14/21 08/14/21 22:59 06:59 14:59 Intake Total 83.25 / 83.25 1315.996 / 1399.246 123.92 / 123.92 Output Total 700 / 700 Balance 83.25 / 83.25 615.996 / 699.246 123.92 / 123.92 Weight last 48 hrs Weight 309 lb 3.2 oz Weight 300 lb Physical Exam Narrative: GENERAL: Patient is intubated and sedated. Minimal response to painful stimuli [] NECK: No jugular vein distension. [] HEART: Regular S1 and S2. LUNGS: Diminished breathing sounds ABDOMEN: Soft EXTREMITIES: Lower extremities with 1+ edema bilaterally. Urinary Catheter Management: Gordon: Cath Placed During This Visit: yes Urinary Catheter Date of Insertion: 08/13/21 Urinary Catheter Time of Insertion: 21:45 Data : 08/14/21 03:15 08/14/21 03:15 Micro: Microbiology 08/14/21 04:20 C.difficile Toxin B Gene (PCR) - Final Stool - Stool Aspirate 08/14/21 01:41 Blood Culture - Preliminary Blood SPECIMEN COLLECTED 08/14/21 02:00 Blood Culture - Preliminary Blood SPECIMEN COLLECTED A&P Assessment and plan (1) Cardiac arrest: Status: Acute (2) Shock: Status: Acute (3) CHF (congestive heart failure): Status: Acute (4) Coronary artery disease: Status: Acute (5) LYNNE (acute kidney injury): Status: Acute (6) Transaminitis: Status: Acute (7) Abnormal urinalysis: Status: Acute (8) Nycturia: Status: Acute (9) Paroxysmal A-fib: Status: Acute (10) Pneumonia: Status: Acute Plan Initially cardiology was consulted last night when patient arrived after prolonged resuscitation effort in the field. I examined the patient last night and reviewed labs and EKGs. Initial rhythm according to EMS was V. fib. Later he had PEA. He had 1 hour of total CPR time with brief intermittent periods of palpable pulse.Given his prolonged resuscitation, no significant purposeful movement, no ST elevation FL on EKG, significantly elevated lactate level and low pH, decision was made to conservatively manage patient and perform cath later once patient is stabilized and shows signs of neurological recovery. We will treat as a non-ST elevation FL at this time. Continue aspirin. Continue IV anticoagulation. Patient is on pressors. He has spiked fevers this morning. Antibiotic therapy per medicine team recommendations. Thank you for involving us with care of this patient. We will continue to follow. Please call with questions. Consult Attestations Medical Necessity Statement: Care expected to cross 2 midnights. Coding Level of Care Code Acute Field Contact Person for [facility] Diagnoses Cardiac arrest I46.9 Shock R57.9 CHF (congestive heart failure) I50.9 Coronary artery disease I25.10 LYNNE (acute kidney injury) N17.9 Transaminitis R74.01 Abnormal urinalysis R82.90 Nycturia R35.1 Paroxysmal A-fib I48.0 Pneumonia J18.9
[2021-08-14] MEDS: acetaminophen 325 mg Tablet 650 MG PO ×3 (09:05→20:42)
[2021-08-14] MEDS: aspirin 81 mg Chew Tablet PO (09:05)
[2021-08-14] MEDS: levofloxacin-dextrose 5 % 750 MG/150 ML PREMIX 100 MG IV (09:07)
[2021-08-14] MEDS: FUROsemide 100 MG in sodium chloride 0.9% 40 ML IV ×2 (09:12→23:19)
--- NOTE | 2021-08-14 09:43 | P.PN_ITS ---
Subjective Subjective: Intubated, sedated. Additional information obtained from his as below, and presented history as well. History of CABG, recent stent, prior history of likely CHF, with severe exertional dyspnea, recently better. No recent complaints. She reports he does not smoke, does not drink alcohol, no drug use. Not on prostate medications, reports multiple episodes of nocturia. History of penicillin allergy with anaphylaxis. Vitals/I&O/Wt Last Vital Signs Temp 101.8 F H 08/14/21 07:00 Pulse 99 08/14/21 07:00 Resp 19 H 08/14/21 08:12 BP 88/70 08/14/21 07:00 Pulse Ox 96 08/14/21 08:12 08/13/21 08/14/21 08/14/21 22:59 06:59 14:59 Intake Total 83.25 / 83.25 1315.996 / 1399.246 123.92 / 123.92 Output Total 700 / 700 Balance 83.25 / 83.25 615.996 / 699.246 123.92 / 123.92 Weight last 48 hrs Weight 140.251 kg Weight 136.078 kg Physical Exam Const: GENERAL APPEARANCE: patient mechanically ventilated HENMT: COMMON NORMALS: normocephalic, EAC's normal, Normal external nose present and moist oral mucous membranes HEAD & SCALP: normocephalic NOSE: Normal external nose present EXTERNAL AUDITORY CANAL: EAC's normal OTHER: ETT Neck/C-Spine: OTHER: RIJ CVC Chest: CHEST: Yes Symmetrical chest wall rise Resp: COMMON NORMALS: clear to auscultation bilaterally AUSCULTATION: clear to auscultation bilaterally and diminished lung sounds Cardio: COMMON NORMALS: regular rate, regular rhythm and No murmurs present (Cardio) RATE: regular rate RHYTHM: regular rhythm GI: COMMON NORMALS: Normal to inspection, nondistended, normoactive bowel sounds present and Soft to palpation PALPATION: Yes Soft to palpation Extremity: COMMON NORMALS: no pedal edema Neuro: OTHER: Currently sedated Skin: COMMON NORMALS: no wounds RASHES: no rashes Urinary Catheter Management: Gordon: Cath Placed During This Visit: yes Urinary Catheter Date of Insertion: 08/13/21 Urinary Catheter Time of Insertion: 21:45 Data : 08/14/21 03:15 08/14/21 03:15 Micro: Microbiology 05/28/22 04:20 C.difficile Toxin B Gene (PCR) - Final Stool - Stool Aspirate 08/14/21 01:41 Blood Culture - Preliminary Blood SPECIMEN COLLECTED 08/14/21 02:00 Blood Culture - Preliminary Blood SPECIMEN COLLECTED A&P Assessment and plan (1) Shock: With suspect cardiogenic shock, status postcardiac arrest, troponin ovation, pulmonary report with low EF. Unknown prior EF, although reports he was taking diuretics, with history of CABG 2 years ago and stent within the last year. Lower possibility also of septic shock. Continue pressor, he is weaning down on epinephrine, continue norepinephrine. Continue empiric antibiotics for now, changed from ceftriaxone due to history of anaphylaxis/throat swelling with penicillin to renally dosed Levaquin for now. Follow-up cultures. Multiorgan injury including LYNNE, transaminitis, lactic acid 9.3. Repeat. Pending additional evaluation and recommendations by cardiology. Status: Acute (2) CHF (congestive heart failure): Status: Acute (3) Cardiac arrest: Do not see the Times listed as to how long resuscitation took. states he was being worked on for close to an hour. Was reported to be nodding responses subsequently, but started on sedation due to need for continuation of ETT, mechanical ventilation, cardioversion. Prime etiology is unclear, but has extensive cardiac history with CABG 2 years ago at [facility] in [place], reports also stent within the last 6 months in [place], with symptoms at the time of significant exertional dyspnea with even very short distances. He reportedly continued with his medications, including anticoagulation for atrial fibrillation. She denies any recent complaints of chest pain or pressure, recently his dyspnea has been better. 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 Currently shock, possibly cardiogenic, lower possibility of urinary tract infection contributing to cardiac arrest with septic shock. Abnormal ur inalysis. does report nocturia, is not on prostate medication. No obvious hydronephrosis at least in the right kidney on abdominal ultrasound. Gordon is in place. Appears to have aspiration pneumonia most likely a sequela of cardiac arrest. Acute systolic CHF of unclear duration. Possible NSTEMI. High elevation of troponin to thousands, although postcardiac arrest and in setting of acute kidney injury. Noted to have ventricular fibrillation, also requiring cardioversion. Discussed with his arrhythmia may have been the inciting event. Preliminary report ejection fraction is low, pending final read. No PE on CTA. Receiving antipyretic, cold packs under her arms. Discussed in case additional temp to also arrange for cooling blanket. Discussed with his concern for possibility of neurological sequela. Will reassess mental status periodically. Continue aspirin, anticoagulation. Continue amiodarone. Status: Acute (4) Ventricular fibrillation: Cont amio, give 10 K, 1g Mg, recehck bmp Continue anticoag, ASA, pending additional cardiac work up. Status: Acute (5) LYNNE (acute kidney injury): Following surgery recurrence. Prerenal. Maintain blood pressure. Recheck BMP. Monitor [place]. Given recurrent arrest, possible prolonged initial arrest, discussed with his . Risk of progression/severe kidney injury. Status: Acute (6) Transaminitis: Status: Acute (7) Coronary artery disease: History of CABG, recent stenting. Status: Acute (8) Pneumonia: Likely aspiration pneumonia after cardiac arrest. Continue renally dosed Levaquin. Mechanical ventilatory support. Status: Acute (9) Paroxysmal A-fib: Amiodarone. reports at home on amiodarone, metoprolol, chronic continuation, she cannot exactly remember the agent, but thinks it may have been Eliquis. Status: Acute (10) Abnormal urinalysis: Possible UTI, possible contaminant urinalysis. Patient also have microscopic hematuria in addition to microscopic pyuria. Empiric Levaquin, follow-up urine culture. Will need follow-up for resolution of hematuria, otherwise possible additional evaluation. Gordon catheter in place currently. does report some episodes of nocturia at home, cannot exclude possible BPH. No hydronephrosis noted at least in the right kidney. Status: Acute (11) Nycturia: reports getting up at night multiple times to urinate. Will need follow-up for BPH. Currently Gordon in place. Status: Acute Plan Hyponatremia. Resolved Coagulopathy. On chronic anticoagulation, med list to be obtained Macrocytosis. TSH, free T4, B12, folate all normal, but reports does not drink any alcohol. Currently MCV normal. Hyperglycemia. Query diabetes versus acute stress reaction. Hemoglobin A1c 5.5. Obesity. The patient will be counseled regarding lifestyle modification Transaminitis. This may be due to shock liver from cardiac arrest and/or rhabdomyolysis due to cardiac resuscitation. Will monitor LFTs periodically with CMP along with creatine kinase. Right upper quadrant ultrasound with normal liver, no masses, normal gallbladder, no stones, no gallbladder wall thickening. Pulmonary edema: Acute CHF as above DVT Proflex is. IV heparin drip per protocol Protonix for GI prophylaxis Discussed with at bedside, RN, machine operator packaging Attestations Medical Necessity Statement*: Continue admission for assessment management after cardiac arrest, shock, multiple organ injury, with underlying CAD, possible NSTEMI, possible UTI, aspiration pneumonia. Critical Care Time: The high probability of a clinically significant, sudden or life threatening deterioration of the patient's cardiac, hemodynamic, respiratory, renal, infectious disease system(s) required my full and direct attention, intervention and personal management. The critical care time is as shown. This time is in addition to time spent performing any reported procedures but includes the following: x Data and vital sign review and interpretation x Patient assessment, examination and intervention x Documentation x Medication orders and management Critical Care Time (min): 65 Coding Level of Care Code Acute Mounting Machine Operator for [facility] Fwd Diagnoses Cardiac arrest I46.9 Shock R57.9 CHF (congestive heart failure) I50.9 LYNNE (acute kidney injury) N17.9 Transaminitis R74.01 Coronary artery disease I25.10 Pneumonia J18.9 Paroxysmal A-fib I48.0 Abnormal urinalysis R82.90 Nycturia R35.1 Ventricular fibrillation I49.01
[2021-08-14 09:48] LABS: Adenovirus Not Detected (NOT DETECT); Chlamydia Pneumoniae Not Detected (NOT DETECT); Coronavirus 229E,HKU1,NL63,OC4 Not Detected (NOT DETECT); Human Metapneumovirus Not Detected (NOT DETECT); Human Rhinovirus/Enterovirus Not Detected (NOT DETECT); Influenza A Not Detected (NOT DETECT); Influenza A H1 Not Detected (NOT DETECT); Influenza A H1-2009 Not Detected (NOT DETECT); Influenza A H3 Not Detected (NOT DETECT); Influenza B Not Detected (NOT DETECT); Mycoplasma Pneumoniae Not Detected (NOT DETECT); Parainfluenza Virus Type 1 Not Detected (NOT DETECT); Parainfluenza Virus Type 2 Not Detected (NOT DETECT); Parainfluenza Virus Type 3 Not Detected (NOT DETECT); Parainfluenza Virus Type 4 Not Detected (NOT DETECT); Respiratory Syncytial Virus A Not Detected (NOT DETECT); Respiratory Syncytial Virus B Not Detected (NOT DETECT); SARS-COV-2 Detected (NOT DETECT)
--- NOTE | 2021-08-14 10:28 | PC.NURSE ---
Heparin gtt restarted per protocol, per Dr. Dickson at 1030 AM.
[2021-08-14] MEDS: heparin drip 25,000 UNIT/500 ML PREMIX 35.99 UNIT IV (10:30)
[2021-08-14] MEDS: potassium chloride oral liq 20 mEq/15 mL UDC 10 MEQ PO (10:57)
[2021-08-14] MEDS: pantoprazole 40 mg SDV IVP (10:57)
[2021-08-14 11:40] LABS: Lactate (Lactic Acid level) 3.1 mmol/L (0.5-2.2)
[2021-08-14 12:00] LABS: Glucose Point of Care 118 mg/dL (70-110)
--- NOTE | 2021-08-14 12:24 | PC.NURSE ---
Covid Positive: Family notified in person of COVID results, isolation, and visiting restrictions.
[2021-08-14] MEDS: dexamethasone 10 mg/mL INJ 6 MG IVP (13:00)
[2021-08-14] MEDS: norepinephrine 8 MG in dextrose 5 % 500 ML 38.1 MG IV (13:00)
[2021-08-14 14:14] LABS: Platelet Count 266 10^3/cmm (130-400)
[2021-08-14] MEDS: clopidogrel 75 mg Tablet OG-TUBE (14:35)
[2021-08-14 16:32] LABS: Partial Thromboplastin Time 103.9 SECONDS (23.9-36.7)
[2021-08-14 17:51] LABS: Glucose Point of Care 151 mg/dL (70-110)
[2021-08-14] MEDS: insulin lispro 100 unit/1 mL SUBCUT ×2 (17:55→20:42)
[2021-08-14 20:02] LABS: Glucose Point of Care 147 mg/dL (70-110)
[2021-08-14 20:18] LABS: Anion Gap 15.8 (5-19); Blood Urea Nitrogen 28 mg/dL (6-20); Calcium 8.5 mg/dL (8.5-10.5); Carbon Dioxide 25 mmol/L (22-29); Chloride 104 mmol/L (98-107); Glomerular Filtration Rate 44.8 mL/min (90-130); Glucose 164 mg/dL (65-115); Osmolality Calculated 301 mOsm/kg (285-295); Potassium 3.8 mmol/L (3.5-5.1); Sodium 141 mmol/L (136-145)
[2021-08-14 23:00] LABS: Partial Thromboplastin Time 82.6 SECONDS (23.9-36.7)
[2021-08-15] VITALS (95 sets, daily range): BP systolic 98–151; BP diastolic 73–105; PULSE 81–106; RESP 12–20; TEMP 36.6–37.8; O2SAT 90–99
[2021-08-15 04:03] LABS: ABG PCO2 41.2 mmHg (35-45); ABG PH Result 7.42 (7.35-7.45); Arterial Blood Gas Hematocrit 44.9 % (42-52); Base Excess ABG 1.6 mmol/L (-2.0-2.0); Blood Gas Allen Test Pos; Blood Gas Sample Site Radial, right; Blood Gas Sample Type Arterial; Blood Gas Tidal Volume 0.55; HCO3 ABG 26.4 mmol/L (22-26); Oxygen Device VENT
[2021-08-15 04:24] LABS: Basophils % 0.1 %; Hematocrit 42.9 % (42.0-52.0); Hemoglobin 14.3 g/dL (11.7-16.6); Lymphocytes # 1.5 10^3/uL (0.8-4.8); Mean Corpuscular HGB Conc 33.3 g/dL (30.0-36.0); Mean Corpuscular Hemoglobin 30.5 pg (28.0-34.0); Mean Corpuscular Volume 91.5 fl (80-94); Mean Platelet Volume 10.1 fL (7.4-10.4); Monocytes % 6.9 %; Neutrophils # 12.12 10^3/uL (1.8-7.7); Neutrophils % 82.5 %; Nucleated Red Blood Cells % 0 %; Platelet Count 187 10^3/cmm (130-400); Red Blood Count 4.69 10^6/uL (4.1-5.3); Red Cell Distribution Width 13.8 % (12.1-15.1); White Blood Count 14.7 10^3/uL (4.0-10.0)
[2021-08-15 04:38] LABS: Partial Thromboplastin Time 69.3 SECONDS (23.9-36.7)
[2021-08-15 04:44] LABS: Alanine Aminotransferase 175 U/L (0-41); Alkaline Phosphatase 71 IU/L (40-130); Anion Gap 13.6 (5-19); Aspartate Amino Transferase 139 U/L (0-40); Blood Urea Nitrogen 26 mg/dL (6-20); Calcium 8.4 mg/dL (8.5-10.5); Carbon Dioxide 27 mmol/L (22-29); Chloride 105 mmol/L (98-107); Globulin 2.4 g/dL (1.3-4.6); Glomerular Filtration Rate 52.2 mL/min (90-130); Glucose 137 mg/dL (65-115); Magnesium 1.8 mg/dL (1.7-2.3); Osmolality Calculated 301 mOsm/kg (285-295); Potassium 3.6 mmol/L (3.5-5.1); Sodium 142 mmol/L (136-145); Total Bilirubin 1.2 mg/dL (0.15-1.2); Total Protein 6.4 g/dL (6.6-8.7)
[2021-08-15 04:47] LABS: D Dimer 6.96 ug/mIFEU (0-0.59)
[2021-08-15] MEDS: heparin drip 25,000 UNIT/500 ML PREMIX 21 UNIT IV (05:14)
[2021-08-15] MEDS: acetaminophen 325 mg Tablet 650 MG PO (05:28)
--- NOTE | 2021-08-15 07:24 | PC.NURSE ---
Levophed off upon this nurse's shift. Night nurse verbalized in bedside report he turn off the Levophed at 0100 this am.
[2021-08-15] MEDS: pantoprazole 40 mg SDV IVP (08:20)
[2021-08-15] MEDS: aspirin 81 mg Chew Tablet PO (08:20)
[2021-08-15] MEDS: clopidogrel 75 mg Tablet OG-TUBE (08:20)
--- NOTE | 2021-08-15 08:23 | XACV_ITS ---
Exam Room: [facility] Ht: 185 cm Wt: 140 kg BSA: 2.74 m2 Gender: Male : 1965 Exam Priority: Routine Procedure(s): Procedure Description: Diagnostic procedure Procedure Description: Venous Graft Catheterization Procedure Description: TODD Graft Catheterization Procedure Description: Miscellaneous Procedure Description: Angio-Seal Procedure Description: Coronary Angiography Diagnostic Cath Status: Urgent Diagnostic Findings * Left main artery: Patent LAD: Proximal to mid segment is subtotally occluded. Left circumflex artery: Has diffuse mild to moderate disease RCA is ostially occluded SVG to PDA with jump graft to OM: Patent TODD to LAD: Patent. * INDICATION: 55-year-old man who had presented with [id number] V. fib cardiac arrest. Total resuscitation time was over 1 hour with intermittent return of pulse for brief periods. No ST elevation was seen on post resuscitation EKG. Troponins went up significantly. Plan was to wait for neurological recovery prior to coronary angiogram. Patient has started responding appropriately. He is currently intubated. Plan for coronary angiogram with possible percutaneous coronary intervention. * Coronary angiography shows right dominance. Conclusions 1. Left main artery: Patent LAD: Proximal to mid segment is subtotally occluded. Left circumflex artery: Has diffuse mild to moderate disease RCA is ostially occluded SVG to PDA with jump graft to OM: Patent TODD to LAD: Patent. 2. No acute findings/ revascularization targets. 3. Patient has prior CABG. Recommendations * Aggressive risk factor modification. * Transfer back to ICU. * Patient will need ICD placement for secondary prevention. * Guideline directed medical therapy for heart failure. Diagnostic RX Recommendation: medical therapy and/or counseling Pressures Phase:Rest AO : 96 / 88 ( 93 ) @ 10:06:00 AM 91 / 82 ( 87 ) @ 10:20:00 AM 94 / 85 ( 90 ) @ 10:22:00 AM Clinical Evaluation EBL: 5mL-10mL Procedural Details Procedure Consent Obtained. Pre-Procedure Time Out. Identified patient by full name and date of as verbalized by the patient/guarantor. Does the consent match the physician's order: Yes. Accurate & Complete Informed Consent: Yes. Inpatient/Outpatient History & Physical on Chart: Yes. If H&P is completed, is and addenduem needed: N/A; If yes, is the addendum complete: N/A. Visualize and Verify Site with Patient/Guarantor: N/A. Relevant Radiology Images available: N/A. Pre-op teaching completed and verbalized understanding. The risks, benefits, and alternatives of sedation and/or procedure were discussed by physician. The agrees to continue. Procedure started. Patient arrived to computer laboratory technician on a ventilator and will be managed by respiratiory. [facility] Clinical Fraility Score: 4: Vulnerable. Long Distance Operator Indications: Resuscitated Cardaic Arrest. Chest Pain Symptom Assessment: Asymptomatic. Correct patient, site and procedure confirmed by cath team. Current diagnosis: Cardiac Arrest, NSTEMI. IV Site on Arrival: TLC in the right IJ. Pre Procedural Pulses: bilateral dorsalis pedis was 2+. right groin was prepped with chloroprep then draped in the usual sterile fashion. left groin was prepped with chloroprep then draped in the usual sterile fashion. Baseline sample Acquired. HR: 99 BPM. Physician notified. Physician arrived. Physician scrubbed in. Immediate Pre-Procedure Time Out. Correct Patient: Yes; Correct Procedure: Yes; Correct Site: Yes; Correct Patient Position: Yes; Correct Supplies: Yes; Dried Flammable Prep: Yes; Blood Products Available: N/A;. Lidocaine 1% infiltrated to the right groin. Arterial access obtained with micropuncture set. Admit Source: In Patient. A 5 gabonese JL4 catheter in over wire. Catheter removed over the standard wire. A 5 gabonese JL5 catheter in over wire. Heparin gtt stopped at this time per physician order. Pt arrived to computer laboratory technician with the current medications infusing: Amiodarone 0.5mg/min, Fentanyl 100mcg/hr, Versed 2ml/hr, Furosemide 5mg/hr. Multiple views taken of left coronary artery. Catheter removed over the standard wire. A 5 gabonese JR4 catheter in over wire. SVG's to RCA visualized and patent. [place] RCA occluded. Catheter redirected to the TODD graft. Catheter removed over the standard wire. A 5 gabonese IM catheter in over wire. TODD to LAD visualized. Catheter out. Physician review of cine films. A Right femoral angiogram was performed to determine safe placement of closure device. A Angio-Seal VIP ([facility] [facility]) was successful obtaining hemostatsis at the Right Femoral artery insertion site. Lot number [id number], expires 06/17/2022. Angioseal placed without complications. No signs or symptoms of hematoma noted. Sterile dressing applied per usual sterile fashion. Post Procedure: Pulses reassessed and unchanged. No VTE prophylaxis required. Medication's Wasted: Heparin = 1000 u. Post-op diagnosis: Severe multi vessel CAD, Patent SVG to RCA, Patent TODD to LAD. Complications: none. Estimated blood loss: 5mL-10mL. Airway - Unaffected, continues to be intubated. Circulation: W/N/L, pulses unchanged. Nausea/Vomiting: No. Responsiveness - Normal response to verbal stimuli; alert and follows commands. Procedure completed. Patient transferred by bed to ICU. Vital chart was stopped. Access Site Site: Right Femoral artery Sheath Size: 6 Fr Hemostasis Method: Angio-Seal VIP ([facility]) Hemostasis Success: Successful I, the attending physician, have reviewed and verified all procedure medications. Yes, all medications given per verbal order History/Risk Factors Hypertension: No Dyslipidemia: No Peripheral Arterial Disease (PAD): No Myocardial Infarction (SC): No Obesity: Yes Renal Disease: No Prior Interventions PCI: No CABG: Yes Valve Surgery: No Report Signatures Finalized by Reggie Wood MD on 08/22/2021 11:40 PM
--- NOTE | 2021-08-15 08:37 | W.PM.OPSUD ---
Surgery/Procedure H&P Update DATE OF PROCEDURE: August 15, 2021 DATE H&P PERFORMED: 08/14/21 H&P UPDATE INFORMATION: I have reviewed H&P completed within last 30 days, I have examined patient prior to procedure and No changes to prior documentation PREOP DIAGNOSIS: Vfib cardiac arrest PRIMARY INDICATION FOR PROCEDURE: Vfib cardiac arrest PATIENT REASSESSED PRIOR TO SEDATION, WITH NO CHANGE NOTED: Yes PHYSICAL EXAM: alert, oriented x 3, clear to auscultation bilaterally and regular rate & rhythm AIRWAY EVAL/ANESTHESIA PLAN: ASA III, Monitored Anesthesia, Local Anesthesia, Risks, benefits & alternatives of sedation and/or procedure discussed and Patient agrees to continue as planned
--- NOTE | 2021-08-15 10:38 | PM.PN ---
Subjective Subjective: Underwent coronary angiography, currently doing well postprocedure per denies any chest pain or pressure. Breathing is comfortable on the vent. Reports he is feeling dry/thirsty, has been getting swabs. Discussed with him possible extubation, ETT out. He is following commands well, waking up well. Discussed with him extubation to CPAP. Discussed with him briefly regarding events preceding hospitalization, current diagnosis, including again COVID-19, cardiomyopathy without significant new stenosis noted on angiography. Vitals/I&O/Wt Last Vital Signs Temp 99.7 F H 08/15/21 07:00 Pulse 94 08/15/21 10:30 Resp 20 H 08/15/21 07:57 BP 125/87 08/15/21 10:30 Pulse Ox 96 08/15/21 10:30 08/14/21 08/15/21 08/15/21 22:59 06:59 14:59 Intake Total 382.003 / 1149.399 281.312 / 1430.711 647.616 / 647.616 Output Total 1325 / 1325 300 / 1625 Balance -942.997 / -175.601 -18.688 / -194.289 647.616 / 647.616 Weight last 48 hrs Weight 141.838 kg Weight 140.251 kg Weight 136.078 kg Physical Exam Const: GENERAL APPEARANCE: cooperative and patient mechanically ventilated ORIENTATION/CONSCIOUSNESS: Yes awake HENMT: COMMON NORMALS: normocephalic, EAC's normal, Normal external nose present and moist oral mucous membranes HEAD & SCALP: normocephalic NOSE: Normal external nose present EXTERNAL AUDITORY CANAL: EAC's normal OTHER: ETT Neck/C-Spine: OTHER: RIJ CVC Chest: CHEST: Yes Symmetrical chest wall rise Resp: COMMON NORMALS: clear to auscultation bilaterally AUSCULTATION: clear to auscultation bilaterally and diminished lung sounds Cardio: COMMON NORMALS: regular rate, regular rhythm and No murmurs present (Cardio) RATE: regular rate RHYTHM: regular rhythm GI: COMMON NORMALS: Normal to inspection, nondistended, normoactive bowel sounds present and Soft to palpation PALPATION: Yes Soft to palpation Extremity: COMMON NORMALS: no pedal edema Neuro: OTHER: Currently sedated Skin: COMMON NORMALS: no wounds RASHES: no rashes Urinary Catheter Management: Gordon: Cath Placed During This Visit: yes Urinary Catheter Date of Insertion: 08/13/21 Urinary Catheter Time of Insertion: 21:45 Data : 08/15/21 04:05 08/15/21 04:05 Micro: Microbiology 08/13/21 23:30 Urine Culture - Preliminary Urine Catheterized 08/14/21 02:00 Blood Culture - Preliminary Blood NEGATIVE TO DATE 08/14/21 01:41 Blood Culture - Preliminary Blood NEGATIVE TO DATE 08/14/21 04:20 C.difficile Toxin B Gene (PCR) - Final Stool - Stool Aspirate A&P Assessment and plan (1) CHF (congestive heart failure): Lasix drip for now. Monitor blood pressures. Monitor WOODROW, renal function. Acute systolic CHF, low EF 20-25%. Is doing well, has weaned down significantly on mechanical ventilatory support. Currently down to FiO2 35%, PEEP 8. Discussed with him extubation to CPAP given underlying cardiomyopathy, presentation with pulmonary edema, CHF which is acute, as well as suboptimal renal function. Discussed with RT. Additionally would benefit from sleep study after discharge. Monitor spontaneous respiratory rate, does appear to have intermittently slow respiratory rate, consider backup rate on CPAP, although he is currently still weaning down off sedation. Could not reach his by phone for update. Status: Acute (2) COVID-19: Discussed with him, COVID PCR is positive,. He is having reinfection again. Reported per his he had infection in September, subsequently with vaccination booster. He is doing well in terms of his oxygenation, although does have an identified cardiomyopathy without new blockages noted on angiography. Possibility of myocarditis secondary COVID-19, discussed with him. Yesterday was started on Decadron, continue for now. Monitor oxygenation. D-dimer has been decreasing. Continue on anticoagulation for now. Reassess D-dimer. With prior infection and vaccination with anticipate mild course in terms of hypoxia/lung injury. Isolation. Status: Acute (3) Cardiac arrest: He is awake, alert, responds by nodding, follows directions well. Appears to confirm details from his medical history. New cardiomyopathy, EF down to 20-25%, not entirely clear etiology as underwent coronary angiography without any blockages noted today. Some haziness in RCA, question of possible resolved clot, versus otherwise myocarditis possible secondary to COVID-19. Presented with pulmonary edema, acute CHF. Given presentation after V. fib arrest, consider consultation with cardiothoracic surgery during his hospitalization for AICD. Consider also evaluation for sleep apnea. Sepsis/septic shock less likely, but continue treatment of urinary tract infection. Evaluate for urinary retention with PVR after voiding trial and initiation of treatment of prostatic hypertrophy with follow-up. Continue treatment of possible aspiration pneumonia. Fevers improving. Cardiac history with CABG 2 years ago at [facility] in [place], reports also stent within the last 6 months in [place], with symptoms at the time of significant exertional dyspnea with even very short distances. He reportedly continued with his medications, including anticoagulation for atrial fibrillation. She denies any recent complaints of chest pain or pressure, recently his dyspnea has been better. 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 Appears to have aspiration pneumonia most likely a sequela of cardiac arrest. No PE on CTA. Status: Acute (4) Ventricular fibrillation: Transition to oral antibiotic. Stop drip as discussed with cardiology. Given V. fib arrest, consider consultation with cardiothoracic surgery during his hospitalization for AICD. Continue anticoag, ASA, Plavix Continue respiratory support. Treat CHF. Status: Acute (5) LYNNE (acute kidney injury): Improving Following surgery recurrence. Prerenal. Maintain blood pressure. Recheck BMP. Monitor WOODROW. Given recurrent arrest, possible prolonged initial arrest, discussed with his . Risk of progression/severe kidney injury. Status: Acute (6) Shock: Resolved, weaned off pressors overnight. Maintaining blood pressure. Improving multiorgan injury, improving renal function, liver parameters. With suspect cardiogenic shock post cardiac arrest. Low EF. Lower possibility also of septic shock. Status: Acute (7) Transaminitis: Improving Status: Acute (8) Coronary artery disease: History of CABG, recent stenting. Aspirin, Plavix. Once CK improving resume statin. Once renal function steady, resume VICENTE inhibitor, spironolactone. Status: Acute (9) Pneumonia: Likely aspiration pneumonia after cardiac arrest. Continue renally dosed Levaquin. Weaning off mechanical ventilatory support. Status: Acute (10) Paroxysmal A-fib: Transition to oral amiodarone. Stop drip. For now continues on heparin drip. At home on Eliquis. Status: Acute (11) Abnormal urinalysis: Possible UTI. Patient also have microscopic hematuria in addition to microscopic pyuria. reports multiple episodes of nocturia. Assess with PVR when ready for voiding trial. Consider initiation of treatment for BPH, follow-up. Empiric Levaquin, follow-up urine culture. Will need follow-up for resolution of hematuria, otherwise possible additional evaluation. Status: Acute (12) Nycturia: reports getting up at night multiple times to urinate. Will need follow-up for BPH. Currently Gordon in place. Status: Acute Plan Hyponatremia. Resolved Coagulopathy. On chronic anticoagulation, med list to be obtained Macrocytosis. TSH, free T4, B12, folate all normal, but reports does not drink any alcohol. Currently MCV normal. Hyperglycemia. Query diabetes versus acute stress reaction. Hemoglobin A1c 5.5. Obesity. Follow-up with primary provider for weight loss options. Referral for sleep study. Pulmonary edema: Acute CHF as above DVT Proflex is. IV heparin drip per protocol Protonix for GI prophylaxis Discussed with RN, RT, tissue technologist Attestations Medical Necessity Statement*: [place] for weaning of mechanical ventilatory support, treatment of acute CHF, status post V. fib cardiac arrest, aspiration pneumonia, UTI, COVID-19 Critical Care Time: The high probability of a clinically significant, sudden or life threatening deterioration of the patient's cardiac, respiratory system(s) required my full and direct attention, intervention and personal management. The critical care time is as shown. This time is in addition to time spent performing any reported procedures but includes the following: x Data and vital sign review and interpretation x Patient assessment, examination and intervention x Documentation x Medication orders and management Critical Care Time (min): 55 Coding Level of Care Code Acute Lead Technologist In Cytogenetics for [facility] Fwd Diagnoses Shock R57.9 CHF (congestive heart failure) I50.9 Cardiac arrest I46.9 Ventricular fibrillation I49.01 LYNNE (acute kidney injury) N17.9 Transaminitis R74.01 Coronary artery disease I25.10 Pneumonia J18.9 Paroxysmal A-fib I48.0 Abnormal urinalysis R82.90 Nycturia R35.1 COVID-19 U07.1
[2021-08-15] MEDS: amiodarone 200 mg Tablet PO ×2 (11:20→22:26)
[2021-08-15] MEDS: dexamethasone 10 mg/mL INJ 6 MG IVP (11:20)
[2021-08-15] MEDS: propofol 1,000 MG/100 ML INJ 4.26 MG IV (11:41)
[2021-08-15 13:46] LABS: Partial Thromboplastin Time 31.7 SECONDS (23.9-36.7)
[2021-08-15] MEDS: heparin 5,000 unit/mL INJ 1 mL IV (14:20)
--- NOTE | 2021-08-15 15:28 | PC.RESP ---
pt extubated and placed on nc 3lpm
--- NOTE | 2021-08-15 20:27 | PC.NURSE ---
Pt's recent memory impaired. Pt forgets where he is and how he got here within minutes of discussing with nursing. Pt becomes very tearful when he is told of his current situation. Pt can remember up until his cardiac arrest without difficulty. Pt's tells me that he has PTSD and often wakes up during the night, unaware of his surroundings, and can become violent.
--- NOTE | 2021-08-15 20:45 | P.PN_ITS ---
Subjective Subjective: Patient is stable. Off of pressor support. On minimal vent settings. Underwent coronary angiogram that showed patent TODD to LAD and SVG to RCA. Vitals/I&O/Wt Last Vital Signs Temp 97.8 F 08/15/21 20:00 Pulse 89 08/15/21 20:00 Resp 12 08/15/21 20:00 BP 151/105 08/15/21 20:00 Pulse Ox 97 08/15/21 19:30 08/15/21 08/15/21 08/15/21 06:59 14:59 22:59 Intake Total 281.312 / 1430.711 805.213 / 805.213 181.065 / 986.278 Output Total 300 / 1625 850 / 850 Balance -18.688 / -194.289 805.213 / 805.213 -668.935 / 136.278 Weight last 48 hrs Weight 312 lb 11.2 oz Weight 309 lb 3.2 oz Weight 300 lb Physical Exam Narrative: GENERAL: Patient is intubated. Responding to questions appropriate ly NECK: No jugular vein distension. [] HEART: Regular S1 and S2. LUNGS: Diminished breathing sounds ABDOMEN: Soft EXTREMITIES: Lower extremities with 1+ edema bilaterally. Urinary Catheter Management: Gordon: Cath Placed During This Visit: yes Urinary Catheter Date of Insertion: 08/13/21 Urinary Catheter Time of Insertion: 21:45 Data : 08/15/21 04:05 08/15/21 04:05 Micro: Microbiology 08/13/21 23:30 Urine Culture - Preliminary Urine Catheterized 08/14/21 02:00 Blood Culture - Preliminary Blood NEGATIVE TO DATE 08/14/21 01:41 Blood Culture - Preliminary Blood NEGATIVE TO DATE A&P Assessment and plan (1) Cardiac arrest: Status: Acute (2) Shock: Status: Acute (3) CHF (congestive heart failure): Status: Acute (4) Coronary artery disease: Status: Acute (5) LYNNE (acute kidney injury): Status: Acute (6) Transaminitis: Status: Acute (7) Abnormal urinalysis: Status: Acute (8) Nycturia: Status: Acute (9) Paroxysmal A-fib: Status: Acute (10) Pneumonia: Status: Acute Plan Patient had out of hospital cardiac arrest with initial rhythm of vfib. Later he had PEA. He had 1 hour of total CPR time with brief intermittent periods of palpable pulse.Given his prolonged resuscitation, no significant purposeful movement, no ST elevation VA on EKG, significantly elevated lactate level and low pH, decision was made to conservatively manage patient and perform cath lat er once patient is stabilized and shows signs of neurological recovery. Today he is doing better. Underwent coronary angiogram that showed patent TODD to LAD and SVG to RCA. Per patient's , he had only 2 patent grafts. No revascularization target. Given patient's cardiac arrest and patent grafts, will recommend ICD placement for secondary prevention Continue aspirin and plavix Plan for extubation later today. He has spiked fevers. Antibiotic therapy per medicine team recommendations. Thank you for involving us with care of this patient. We will continue to follow. Please call with questions. Attestations Medical Necessity Statement*: Care expected to cross 2 midnights. Coding Level of Care Code Acute Equipment Maintenance Supervisor for [facility] Fwd Diagnoses Cardiac arrest I46.9 Shock R57.9 CHF (congestive heart failure) I50.9 Coronary artery disease I25.10 LYNNE (acute kidney injury) N17.9 Transaminitis R74.01 Abnormal urinalysis R82.90 Nycturia R35.1 Paroxysmal A-fib I48.0 Pneumonia J18.9
[2021-08-15 20:47] LABS: Partial Thromboplastin Time 76.2 SECONDS (23.9-36.7)
[2021-08-15] MEDS: insulin lispro 100 unit/1 mL SUBCUT (21:01)
[2021-08-15 21:08] LABS: Glucose Point of Care 125 mg/dL (70-110)
[2021-08-15 21:08] LABS: Glucose Point of Care 113 mg/dL (70-110)
[2021-08-15 21:08] LABS: Glucose Point of Care 137 mg/dL (70-110)
[2021-08-15 21:10] LABS: Glucose Point of Care 152 mg/dL (70-110)
[2021-08-15] MEDS: FUROsemide 100 MG in sodium chloride 0.9% 40 ML IV (21:31)
--- NOTE | 2021-08-15 22:08 | PC.NURSE ---
Pt asks for ice chips several times per encounter with nursing. He does not remember that he has been placed on fluid restrictions.
[2021-08-16] VITALS (51 sets, daily range): BP systolic 103–161; BP diastolic 67–106; PULSE 69–93; RESP 12–28; TEMP 36.8–37.1; O2SAT 90–100
--- NOTE | 2021-08-16 00:29 | PC.NURSE ---
Pt resting quietly in bed with eyes closed. Respirations even and unlabored, on 2L nasal cannula.
--- NOTE | 2021-08-16 02:14 | PC.NURSE ---
Pt continues to have poor recent memory, and short term memory is impaired. Pt education regarding fluid restrictions. Pt's buttocks is sore, repositioned.
--- NOTE | 2021-08-16 04:38 | PC.NURSE ---
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 He is very tearful regarding his current health situation.
--- NOTE | 2021-08-16 04:41 | PC.NURSE ---
Pt complains of chest soreness, worse with coughing. He denies the need for pain medication at this time. He will notify nursing if he feels that he needs medication for pain control. Pt educated regarding the need for pulmonary hygiene. Pt is using IS and regularly coughing and deep breathing.
[2021-08-16 04:52] LABS: Basophils % 0.1 %; Hematocrit 38.3 % (42.0-52.0); Hemoglobin 12.9 g/dL (11.7-16.6); Lymphocytes # 1.1 10^3/uL (0.8-4.8); Lymphocytes % 6.9 %; Mean Corpuscular HGB Conc 33.7 g/dL (30.0-36.0); Mean Corpuscular Hemoglobin 30.9 pg (28.0-34.0); Mean Corpuscular Volume 91.6 fl (80-94); Mean Platelet Volume 10.6 fL (7.4-10.4); Monocytes % 6.7 %; Neutrophils # 13.11 10^3/uL (1.8-7.7); Neutrophils % 85.8 %; Nucleated Red Blood Cells % 0 %; Platelet Count 172 10^3/cmm (130-400); Red Blood Count 4.18 10^6/uL (4.1-5.3); Red Cell Distribution Width 13.5 % (12.1-15.1); White Blood Count 15.3 10^3/uL (4.0-10.0)
[2021-08-16 05:03] LABS: Partial Thromboplastin Time 48.3 SECONDS (23.9-36.7)
[2021-08-16 05:05] LABS: D Dimer 3.22 ug/mIFEU (0-0.59)
[2021-08-16 05:09] LABS: Alanine Aminotransferase 154 U/L (0-41); Alkaline Phosphatase 73 IU/L (40-130); Anion Gap 15.4 (5-19); Aspartate Amino Transferase 179 U/L (0-40); Blood Urea Nitrogen 27 mg/dL (6-20); Calcium 8.8 mg/dL (8.5-10.5); Carbon Dioxide 27 mmol/L (22-29); Chloride 101 mmol/L (98-107); Globulin 2.5 g/dL (1.3-4.6); Glucose 142 mg/dL (65-115); Osmolality Calculated 298 mOsm/kg (285-295); Potassium 3.4 mmol/L (3.5-5.1); Sodium 140 mmol/L (136-145); Total Bilirubin 1.4 mg/dL (0.15-1.2); Total Protein 6.5 g/dL (6.6-8.7)
--- NOTE | 2021-08-16 05:51 | PC.NURSE ---
Pt has worsening chest pain, worse with coughing, and reproducible. Pain is in medial chest over blisters from defibrillator pads.
[2021-08-16] MEDS: morphine 4 mg/mL SDV 1 mL 1 MG IVP (06:04)
[2021-08-16 07:43] LABS: Glucose Point of Care 143 mg/dL (70-110)
--- NOTE | 2021-08-16 08:07 | PM.PN ---
Subjective Subjective: 55-year-old man admitted on 08/13 with arrhythmia arrest. He was initially intubated and sedated but subsequently diuresed extubated and now on 2 L of oxygen. Patient was evaluated with angiogram which showed that his 2 previously patent grafts remain patent TODD to LAD and saphenous vein graft to RCA. Patient tells me that last year at [place] he had three-vessel bypass but 1 failed and also a PTCA and stent of another artery. Echocardiogram on 08/13/2021 showed 20 to 25% LVEF with severe global hypokinesis and right ventricular dilatation. Earlier EKG showed atrial flutter with intraventricular conduction delay. Currently shows sinus rhythm with intraventricular conduction delay. I recommended to the patient a defibrillator however he is emotional and states that he feels like he has been through a lot. He is ultimately agreeable. He does feel hungry and was able to stand at bedside with standby assist. Patient tells me he takes his medications faithfully. Patient had a sleep study done at [facility] 2 weeks ago but does not have results yet. I have the cath documentation which says also that cowlitz RCA is occluded. I do not see mention of the circumflex artery but if there was a third bypass perhaps that is the vessel bypass that failed. Discharge documentation from 02/01/2020 at [facility] in [place] shows obese white male with hypertension hyperlipidemia diet-controlled diabetes type 2 had TODD to LAD SVG to obtuse marginal and SVG to right posterior descending artery. Also had xiphoidectomy. Vitals/I&O/Wt Last Vital Signs Temp 98.2 F 08/16/21 04:00 Pulse 78 08/16/21 06:30 Resp 12 08/16/21 06:30 BP 133/83 08/16/21 06:30 Pulse Ox 98 08/16/21 06:30 08/15/21 08/16/21 08/16/21 22:59 06:59 14:59 Intake Total 426.315 / 1231.528 603.4 / 1834.928 Output Total 1100 / 1100 225 / 1325 Balance -673.685 / 131.528 378.4 / 509.928 Weight last 48 hrs Weight 134.354 kg Weight 141.838 kg Physical Exam Narrative: General well-developed well-nourished male moderately overweight. He is alert oriented pleasant. CV regular rate and rhythm Lungs clear to auscultation bilaterally Abdomen soft nontender Calves trace ankle edema Mood and affect mildly depressed and anxious. Neuro he is alert and oriented x3 pleasant and cooperative moves all extremities symmetrically and able to stand. Oral absent dentition. Neck right triple-lumen catheter in the IJ Rhythm sinus with intraventricular conduction delay Urinary Catheter Management: Gordon: Cath Placed During This Visit: yes Urinary Catheter Date of Insertion: 08/13/21 Urinary Catheter Time of Insertion: 21:45 Data : 08/16/21 04:00 08/16/21 04:00 Micro: Microbiology 08/13/21 23:30 Urine Culture - Preliminary Urine Catheterized A&P Assessment and plan (1) Ventricular fibrillation: Patient with severe global hypokinesis with EF 20-25 % on admission. He is already demonstrated cardiac arrest and would benefit from a defibrillator. Will discuss with cardiology as when this could be performed. Patient will be started on Coreg for heart failure today. Status: Acute (2) CHF (congestive heart failure): Low-dose beta-hernan and losartan will be initiated. Acute kidney injury has recovered. Status: Acute (3) Coronary artery disease: No revascularization targets at this time. TODD to LAD and SVG to RCA are patent but a third graft is known to have failed preceding this admission and already documented. Status: Acute (4) LYNNE (acute kidney injury): Resolved or resolving. Status: Acute (5) COVID-19: Patient had COVID vaccination last year completed in September and November but he had COVID in March 2021. He was COVID-positive this admission and is not sure where he got it. He has not had fevers or significant hypoxemia beyond what would be expected with his heart failure. No specific treatment at this time for this problem. Status: Acute Plan Urine looks cloudy and the patient has a white count. We will check UA and micro. Treat with Rocephin. Will coordinate procedures with cardiology. Otherwise will switch from furosemide drip to oral furosemide. Increase activity. Discontinue Gordon. Start physical therapy. Anticipate transfer out of the ICU once it defibrillator is complete. Attestations Medical Necessity Statement*: Needs continued hospitalization to monitor rhythm and await defibrillator prior to discharge. Critical Care Time: The high probability of a clinically significant, sudden or life threatening deterioration of the patient's [cardiac] system(s) required my full and direct attention, intervention and personal management. The critical care time is as shown. This time is in addition to time spent performing any reported procedures but includes the following: [x] Data and vital sign review and interpretation [x] Patient assessment, examination and intervention [x] Documentation [x] Medication orders and management Critical Care Time (min): 50 Coding Level of Care Code Acute Vocational Trainer for [facility] Fwd Diagnoses Ventricular fibrillation I49.01 CHF (congestive heart failure) I50.9 Coronary artery disease I25.10 LYNNE (acute kidney injury) N17.9 COVID-19 U07.1
[2021-08-16] MEDS: aspirin 81 mg Chew Tablet PO (08:36)
[2021-08-16] MEDS: levofloxacin-dextrose 5 % 750 MG/150 ML PREMIX 100 MG IV (08:36)
[2021-08-16] MEDS: pantoprazole 40 mg SDV IVP (08:36)
[2021-08-16] MEDS: clopidogrel 75 mg Tablet OG-TUBE (08:36)
--- NOTE | 2021-08-16 08:47 | XRR_ITS ---
PROCEDURE INFORMATION: Exam: XR Chest Exam date and time: 08/16/2021 9:03 AM Age: 55 years old Clinical indication: Shortness of breath; Additional info: Follow up covid TECHNIQUE: Imaging protocol: XR of the chest. Views: 1 view. COMPARISON: CR (CHEST, ) 08/14/2021 7:56 AM FINDINGS: Lungs: Lungs are clear. Pleural spaces: There is no pleural effusion or pneumothorax. Heart/Mediastinum: There is mild enlargement of the cardiac silhouette. Bones/joints: Sternal wires are present. There is no displacement to suggest sternal dehiscence. XR/XR chest 1V portable [id number] IMPRESSION: No acute findings.
--- NOTE | 2021-08-16 09:10 | PC.CHAP ---
Pastoral Care Encounter/Spiritual Assessment Type of Contact [] Declined rag cutting machine tender visit [] Patient/Family/Request visit [] Outpatient visit [] Follow-up visit [] Physician referral [] Code/Alert [x] Routine visit [] Staff referral [] Actively dying [] Patient sleeping [] Family support [] [] Out of room [] Palliative care [] [x] Receiving care in room [] Pre-surgical visit [] Trauma [] Long length of stay [x] ICU visit [x] Other: setting up in chair Relational/Emotional Strength [] Patient feels connected with others/family/visitors/staff [] Distress [] Loneliness/isolation [] Abandonment Spirituality of Patient [] Person of Marilou [] Attends Protestant of their Marilou [] Believes in Prayer [] Reads Bible or Mormon materials [] There are Spiritual issues to be addressed Elementary School Director Interventions [x] Prayer [] Active listening [] Non-anxious presence [] Spiritual/emotional support [] Crisis/trauma care [] Spiritual counseling [] Bereavement support [] Provided bereavement packet [] Provided Bible/devotional materials [] Provided toy/stuffed animal, coloring book to patient or family member [] Provided Communion [] Anointing/[place] [] Salvation [x] Completed spiritual assessment [] Other: Impact on Illness or Injury [] Angry [] Fearful [] Anxious [] Often cries [] Exhaustion [] Unable to work [] Unable to attend yarsanism [] Unable to walk/stand [] Unable to read [] Unable to drive [] Unable to eat/drink [] Unable to sleep [] Unable to be with family [] Patient intubated [] Other: Summary Time spent with patient
[2021-08-16] MEDS: dexamethasone 4 mg Tablet PO (09:15)
[2021-08-16] MEDS: losartan 50 mg Tablet 25 MG PO (09:15)
[2021-08-16 09:17] LABS: Specific Gravity, Urine 1.025 (1.005-1.030); Urine Appearance Hazy (CLEAR); Urine Color Yellow (Yellow); pH Urine 5 (5-7)
[2021-08-16 09:18] LABS: Bilirubin Urine 1+ (Negative); Blood Urine 3+ (Negative); Glucose Urine UA Norm (Normal); Ketones Urine Negative (Negative); Leukocyte Esterase Urine Negative (Negative); Nitrate Urine Negative (Negative); Protein Urine 1+ (Negative); Urobilinogen Urine Norm (Negative)
[2021-08-16 09:20] LABS: Bacteria Urine 1+ /hpf; Mucus Urine 1+ /hpf; Squamous Epithelial Cell Urine 0-4 /hpf (0-5); Transitional Epi Cells Urine 0-4 /hpf
[2021-08-16 09:21] LABS: Add Urine Culture? No; Amorphous Sediment Urine 1+ /hpf
[2021-08-16] MEDS: enoxaparin 150 mg/mL Syringe 130 MG SUBCUT ×2 (10:18→20:34)
[2021-08-16] MEDS: amiodarone 200 mg Tablet PO ×2 (10:18→20:37)
[2021-08-16] MEDS: cefTRIAXone 1,000 MG in sodium chloride 0.9% (plus) 50 ML 100 MG IV (10:18)
--- NOTE | 2021-08-16 11:15 | PM.PN ---
Subjective Subjective: Patient is doing well. Was extubated yesterday. Is ambulating today Vitals/I&O/Wt Last Vital Signs Temp 98.7 F 08/16/21 07:30 Pulse 87 08/16/21 10:30 Resp 17 08/16/21 10:30 BP 123/70 08/16/21 10:30 Pulse Ox 95 08/16/21 10:30 08/15/21 08/16/21 08/16/21 22:59 06:59 14:59 Intake Total 426.315 / 1231.528 603.4 / 1834.928 214.688 / 214.688 Output Total 1100 / 1100 225 / 1325 Balance -673.685 / 131.528 378.4 / 509.928 214.688 / 214.688 Weight last 48 hrs Weight 296 lb 3.2 oz Weight 312 lb 11.2 oz Physical Exam Narrative: GENERAL: Patient is alert and oriented x 3 NECK: No jugular vein distension. [] HEART: Regular S1 and S2. LUNGS: Diminished breathing sounds ABDOMEN: Soft EXTREMITIES: Lower extremities with 1+ edema bilaterally. Urinary Catheter Management: Gordon: Cath Placed During This Visit: yes Urinary Catheter Date of Insertion: 08/13/21 Urinary Catheter Time of Insertion: 21:45 Data : 08/16/21 04:00 08/16/21 04:00 Micro: Microbiology 08/13/21 23:30 Urine Culture - Final Urine Catheterized A&P Assessment and plan (1) Cardiac arrest: Status: Acute (2) Shock: Status: Acute (3) CHF (congestive heart failure): Status: Acute (4) Coronary artery disease: Status: Acute (5) LYNNE (acute kidney injury): Status: Acute (6) Transaminitis: Status: Acute (7) Abnormal urinalysis: Status: Acute (8) Nycturia: Status: Acute (9) Paroxysmal A-fib: Status: Acute (10) Pneumonia: Status: Acute Plan Patient had out of hospital cardiac arrest with initial rhythm of vfib. Later he had PEA. He had 1 hour of total CPR time with brief intermittent periods of palpable pulse.Given his prolonged resuscitation, no significant purposeful movement, no ST elevation SC on EKG, significantly elevated lactate level and low pH, decision was made to conservatively manage patient and perform cath later once patient is stabilized and shows signs of neurological recovery. On 08/15, patient was considered stable to undergo coronary angiogram that showed patent TODD to LAD and SVG to RCA. Per patient's , he had only 2 patent grafts. SVG to OM is occluded. No revascularization target. Given patient's cardiac arrest and patent grafts with no revascularization need at this time, will recommend ICD placement for secondary prevention. Will recommend Dr Huber tomorrow for that Continue aspirin and plavix Patient has been extubated and is doing well. Antibiotic therapy per medicine team recommendations. Thank you for involving us with care of this patient. We will continue to follow. Please call with questions. Attestations Medical Necessity Statement*: Care expected to cross 2 midnights. Coding Level of Care Code Acute [employer] Product Consultant for [facility] Diagnoses Cardiac arrest I46.9 Shock R57.9 CHF (congestive heart failure) I50.9 Coronary artery disease I25.10 LYNNE (acute kidney injury) N17.9 Transaminitis R74.01 Abnormal urinalysis R82.90 Nycturia R35.1 Paroxysmal A-fib I48.0 Pneumonia J18.9
[2021-08-16 11:46] LABS: Glucose Point of Care 150 mg/dL (70-110)
[2021-08-16 12:21] LABS: Partial Thromboplastin Time 27.2 SECONDS (23.9-36.7)
[2021-08-16] MEDS: insulin lispro 100 unit/1 mL SUBCUT (12:26)
[2021-08-16] MEDS: acetaminophen 325 mg Tablet 650 MG PO (15:09)
[2021-08-16] MEDS: FUROsemide 40 mg Tablet PO (15:58)
[2021-08-16 17:22] LABS: Glucose Point of Care 131 mg/dL (70-110)
[2021-08-16] MEDS: magnesium oxide 400 mg tablet PO (17:22)
[2021-08-16] MEDS: potassium chloride ER 20 mEq Tablet PO (17:22)
[2021-08-16] MEDS: atorvastatin 40 mg Tablet 20 MG PO (20:32)
[2021-08-16] MEDS: carvedilol 6.25 mg Tablet PO (20:32)
[2021-08-16 20:36] LABS: Glucose Point of Care 138 mg/dL (70-110)
[2021-08-17] VITALS (36 sets, daily range): BP systolic 86–153; BP diastolic 49–99; PULSE 63–90; RESP 10–26; O2SAT 91–100
--- NOTE | 2021-08-17 | SCC_ITS ---
Procedure done: Dual-lead automatic implantable cardiac defibrillator implantation 222.2 seconds of fluoroscopic guidance, for a cumulative dose of 128.57 mGy, was provided to Dr. Huber by the radiology department. C-arm images of the chest were saved for the patient's permanent record. [facility]
[2021-08-17 06:29] LABS: D Dimer 2.05 ug/mIFEU (0-0.59)
[2021-08-17 06:34] LABS: Alanine Aminotransferase 117 U/L (0-41); Albumin Level 3.6 g/dL (3.5-5.2); Alkaline Phosphatase 63 IU/L (40-130); Anion Gap 16.6 (5-19); Aspartate Amino Transferase 149 U/L (0-40); Blood Urea Nitrogen 21 mg/dL (6-20); Calcium 8.5 mg/dL (8.5-10.5); Carbon Dioxide 23 mmol/L (22-29); Chloride 100 mmol/L (98-107); Globulin 2.3 g/dL (1.3-4.6); Glomerular Filtration Rate 116.2 mL/min (90-130); Glucose 140 mg/dL (65-115); Osmolality Calculated 287 mOsm/kg (285-295); Potassium 3.6 mmol/L (3.5-5.1); Sodium 136 mmol/L (136-145); Total Bilirubin 0.9 mg/dL (0.15-1.2); Total Protein 5.9 g/dL (6.6-8.7)
[2021-08-17 07:27] LABS: Basophils % 0.1 %; Hematocrit 34.6 % (42.0-52.0); Hemoglobin 11.6 g/dL (11.7-16.6); Lymphocytes % 9.6 %; Mean Corpuscular HGB Conc 33.5 g/dL (30.0-36.0); Mean Corpuscular Hemoglobin 30.7 pg (28.0-34.0); Mean Corpuscular Volume 91.5 fl (80-94); Mean Platelet Volume 10.9 fL (7.4-10.4); Monocytes # 0.6 10^3/uL (0.2-0.9); Monocytes % 6.1 %; Neutrophils # 8.59 10^3/uL (1.8-7.7); Neutrophils % 83.8 %; Nucleated Red Blood Cells % 0 %; Platelet Count 165 10^3/cmm (130-400); Red Blood Count 3.78 10^6/uL (4.1-5.3); Red Cell Distribution Width 13.2 % (12.1-15.1); White Blood Count 10.3 10^3/uL (4.0-10.0)
[2021-08-17 07:28] LABS: Glucose Point of Care 137 mg/dL (70-110)
--- NOTE | 2021-08-17 09:07 | P.PN_ITS ---
Subjective Subjective: 55-year-old male admitted intubated and sedated after 1 hour of CPR. He has what looks like a V. tach arrest. Today he is going for a defibrillator and his last Lovenox dose was last evening. Patient denies chest pain or nausea. He is anxious over the procedure. Patient states he quit tobacco the day before his three-vessel bypass surgery. He drinks rare beer. 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 He drinks 2 cups of coffee a day states his hemoglobin A1c is 5-6 currently Vitals/I&O/Wt Last Vital Signs Temp 98.7 F 08/16/21 07:30 Pulse 76 08/17/21 08:00 Resp 18 08/17/21 08:00 BP 125/91 08/17/21 08:00 Pulse Ox 99 08/17/21 08:00 08/16/21 08/17/21 08/17/21 22:59 06:59 14:59 Intake Total 960 / 1654.688 480 / 2134.688 0 / 0 Output Total 1050 / 1050 700 / 1750 Balance -90 / 604.688 -220 / 384.688 0 / 0 Weight last 48 hrs Weight 140.614 kg Weight 134.354 kg Physical Exam Narrative: General well-developed well-nourished burly male 6 foot 2 thick chested huge hands in no acute cardiopulmonary distress CV regular rate and rhythm Lungs clear to auscultation bilaterally Abdomen positive bowel sounds soft nontender Calves trace edema Urinary Catheter Management: Gordon: Cath Placed During This Visit: yes Urinary Catheter Date of Insertion: 08/13/21 Urinary Catheter Time of Insertion: 21:45 Data : 08/17/21 07:18 08/17/21 04:41 Micro: Microbiology 08/13/21 23:30 Urine Culture - Final Urine Catheterized A&P Assessment and plan (1) COVID-19: Hypoxemia basically resolved however patient has coronary artery disease, diabetes and atrial fibrillation as risk factors. Continue with Decadron Status: Acute (2) Ventricular fibrillation: He had V. fib or V. tach cardiac arrest in the field and recovered well. He is going for cardiac defibrillator today Status: Acute (3) Paroxysmal A-fib: Continue anticoagulation with apixaban once he comes back from his defibrillator Lovenox stopped this morning Status: Acute (4) UTI (urinary tract infection): Continue Rocephin will treat for total of 7 days antibiotic therapy Status: Acute (5) LYNNE (acute kidney injury): Essentially resolved Status: Acute (6) Coronary artery disease: Stable with chronic ischemic cardiomyopathy and low EF but all culprit lesions amenable to intervention have been completed. He had an angiogram earlier this hospitalization. Continue with Plavix and apixaban Status: Acute (7) Diabetes: Diabetic diet and sliding scale insulin. Status: Acute Attestations Medical Necessity Statement*: Patient remains in the ICU for close cardiac monitoring following cardiac arrest. Defibrillator placement today increase activity. Anticipate stepdown unit in 1 to 2 days Critical Care Time: The high probability of a clinically significant, sudden or life threatening deterioration of the patient's [cardiac system(s) required my full and direct attention, intervention and personal management. The critical care time is as shown. This time is in addition to time spent performing any reported procedures but includes the following: [x] Data and vital sign review and interpretation [x] Patient assessment, examination and intervention [x] Documentation [x] Medication orders and management Critical Care Time (min): 50 Coding Level of Care Code Acute Geospatial Systems Integrator for [facility] Fwd Diagnoses COVID-19 U07.1 Ventricular fibrillation I49.01 Paroxysmal A-fib I48.0 UTI (urinary tract infection) N39.0 LYNNE (acute kidney injury) N17.9 Coronary artery disease I25.10 Diabetes E11.9
--- NOTE | 2021-08-17 09:48 | PC.CHAP ---
Pastoral Care Encounter/Spiritual Assessment Type of Contact [] Declined veterinary surgery technician visit [] Patient/Family/Request visit [] Outpatient visit [] Follow-up visit [] Physician referral [] Code/Alert [x] Routine visit [] Staff referral [] Actively dying [x] Patient sleeping [] Family support [] [] Out of room [] Palliative care [] [] Receiving care in room [] Pre-surgical visit [] Trauma [] Long length of stay [x] ICU visit [] Other: Relational/Emotional Strength [] Patient feels connected with others/family/visitors/staff [] Distress [] Loneliness/isolation [] Abandonment Spirituality of Patient [] Person of Marilou [] Attends Jainism of their Marilou [] Believes in Prayer [] Reads Bible or Episcopalian materials [] There are Spiritual issues to be addressed Tank Farm Attendant Interventions [x] Prayer [] Active listening [] Non-anxious presence [] Spiritual/emotional support [] Crisis/trauma care [] Spiritual counseling [] Bereavement support [] Provided bereavement packet [] Provided Bible/devotional materials [] Provided toy/stuffed animal, coloring book to patient or family member [] Provided Communion [] Anointing/[place] [] Salvation [x] Completed spiritual assessment [] Other: Impact on Illness or Injury [] Angry [] Fearful [] Anxious [] Often cries [] Exhaustion [] Unable to work [] Unable to attend shinto [] Unable to walk/stand [] Unable to read [] Unable to drive [] Unable to eat/drink [] Unable to sleep [] Unable to be with family [] Patient intubated [] Other: Summary Time spent with patient
--- NOTE | 2021-08-17 09:52 | SC_ITS ---
WS: [id number] C-arm fluoroscopy for cardiac pacemaker wire insertion, 08/17/2021. Clinical Data: PACEMAKER Comparison: None. Findings: A pacemaker wire is in the region of the heart. SC/C-arm FL for Pacemaker Impression: Pacemaker wire insertion.
--- NOTE | 2021-08-17 10:24 | PM.CONSULT ---
Providers/Reason For Consult Consulting Physician/Specialty*: Dr. Huber/cardiothoracic surgery Reason for Consult*: Medically refractory cardiomyopathy Requesting Physician: Dr. Wood Attending Physician: Ezra Marques MD History of Present Illness History of Present Illness Marco Antonio Hairston is a 55 year old male whom I been consulted for consideration for AICD implantation. He was admitted by EMS on August 13 after suffering a cardiac arrest while visiting in the area locally and a local racetrack. He underwent CPR for over 1 hour including multiple rounds of defibrillation. He was intubated in the emergency department where he had another episode of V. tach and cardioverted with external defibrillation. He has been evaluated by Dr. Wood related to his past history for CABG 2 years ago in [place]. Apparently had TODD to LAD vein graft to PDA and vein graft to OMB. states there is known occlusion to the OMB vein graft. Catheterization by Dr. Wood during this admission reveals patent TODD to LAD and vein graft to the PDA. No other lesions needed to be addressed. Ejection fraction is approximately 20 to 25% upon echocardiogram here. Warm preventive measures, AICD has been recommended. Currently, Mr. Hairston has been resting in the ICU where he has been doing well. Review of Systems Const: Denies: fever(s) or chills Card: Reports: palpitations, edema, swelling of feet/ankles and dyspnea on exertion; Denies: chest pain Resp: Reports: dyspnea; Denies: productive cough or non-productive cough GI: Denies: abdominal pain, nausea, vomiting or hematemesis Musc: Denies: neck pain or back pain Psych: Denies: anxiety or depression Endo: Denies: polyuria or polydipsia Manan/Lymph: Denies: easy bruising Medications/Allergies Home Medications Medication Instructions Recorded Confirmed Last Taken Type amiodarone 200 mg tablet 200 mg PO DAILY 08/14/21 08/14/21 Unknown History apixaban 5 mg tablet (Eliquis) 5 mg PO BID 08/14/21 08/14/21 Unknown History atorvastatin 20 mg tablet 20 mg PO DAILY 08/14/21 08/14/21 Unknown History clopidogrel 75 mg tablet (Plavix) 75 mg PO DAILY 08/14/21 08/14/21 Unknown History doxazosin 1 mg tablet 1 mg PO DAILY 08/14/21 08/14/21 Unknown History furosemide 40 mg tablet (Lasix) 40 mg PO DAILY 08/14/21 08/14/21 Unknown History lisinopril 20 mg tablet 20 mg PO DAILY 08/14/21 08/14/21 Unknown History metoprolol tartrate 25 mg tablet 25 mg PO BID 08/14/21 08/14/21 Unknown History omeprazole 20 mg capsule,delayed 20 mg PO DAILY 08/14/21 08/14/21 Unknown History release spironolactone 25 mg tablet 25 mg PO DAILY 08/14/21 08/14/21 Unknown History Allergies Allergy/AdvReac Type Severity Reaction Status Date / Time Penicillins Allergy ALGY-Anaphy Verified 08/14/21 08:43 laxis Current Medications Generic Name Dose Route Start Last Admin Trade Name Freq PRN Reason Stop Dose Admin Acetaminophen 650 mg 08/14/21 08:53 08/16/21 15:09 Acetaminophen 325 Mg Tablet PO 650 mg Q4H PRN Administration MILD PAIN OR INCREASE TEMP Amiodarone HCl 200 mg 08/15/21 10:45 08/16/21 20:37 Amiodarone 200 Mg Tablet PO 200 mg Q12H ENRIQUE Administration Atorvastatin Calcium 20 mg 08/16/21 21:00 08/16/21 20:32 Atorvastatin 40 Mg Tablet PO 20 mg BEDTIME ENRIQUE Administration Carvedilol 6.25 mg 08/16/21 21:00 08/16/21 20:32 Carvedilol 6.25 Mg Tablet PO 6.25 mg BID@0900,2100 ENRIQUE Administration Clopidogrel Bisulfate 75 mg 08/14/21 13:15 08/16/21 08:36 Clopidogrel 75 Mg Tablet OG-TUBE 75 mg DAILY ENRIQUE Administration Dexamethasone 4 mg 08/16/21 09:00 08/16/21 09:15 Dexamethasone 4 Mg Tablet PO 4 mg DAILY ENRIQUE Administration Furosemide 40 mg 08/16/21 16:00 08/16/21 15:58 Furosemide 40 Mg Tablet PO 40 mg BID@08,16 ENRIQUE Administration Ceftriaxone Sodium 1,000 mg/ 50 mls @ 100 mls/hr 08/16/21 10:00 08/16/21 11:01 Sodium Chloride IV Infused Q24H ENRIQUE Infusion Protocol Insulin Human Lispro 0 unit 08/14/21 08:00 08/17/21 08:06 Insulin Lispro 100 Unit/1 Ml SUBCUT Not Given WM&BEDTIME ENRIQUE Protocol Magnesium Oxide 400 mg 08/16/21 18:00 08/16/21 17:22 Magnesium Oxide 400 Mg Tablet PO 400 mg BID ENRIQUE Administration Potassium Chloride 20 meq 08/16/21 18:00 08/16/21 17:22 Potassium Chloride Er 20 Meq Tablet PO 20 meq BID ENRIQUE Administration PFSH Acute PFSH: Medical History Chronic anticoagulation Coronary artery disease Diabetes Paroxysmal A-fib Surgical History Hx of CABG 2 ya SE hosp in [facility] Vitals/I&O/Wt Last Vital Signs Temp 98.7 F 08/16/21 07:30 Pulse 76 08/17/21 08:00 Resp 18 08/17/21 08:00 BP 125/91 08/17/21 08:00 Pulse Ox 99 08/17/21 08:00 08/16/21 08/17/21 08/17/21 22:59 06:59 14:59 Intake Total 960 / 1654.688 480 / 2134.688 0 / 0 Output Total 1050 / 1050 700 / 1750 Balance -90 / 604.688 -220 / 384.688 0 / 0 Weight last 48 hrs Weight 310 lb Weight 296 lb 3.2 oz Physical Exam Const: COMMON NORMALS: patient oriented x3 HENMT: COMMON NORMALS: normocephalic, atraumatic, hearing grossly normal bilaterally and external ears normal HEAD & SCALP: normocephalic and atraumatic EXTERNAL EAR: Yes external ears normal Eye: COMMON NORMALS: Equal, round and reactive pupils present and EOMs intact bilaterally PUPIL: Yes Equal, round and reactive pupils present Neck/C-Spine: COMMON NORMALS: full ROM and no lymphadenopathy Chest: COMMONS NORMALS: normal inspection of the chest and normal palpation of entire chest wall Resp: COMMON NORMALS: normal respiratory effort, No retractions, No use of accessory muscles and clear to auscultation bilaterally AUSCULTATION: clear to auscultation bilaterally Cardio: COMMON NORMALS: regular rate, regular rhythm and S1 normal heart sound present RATE: regular rate RHYTHM: regular rhythm HEART SOUNDS: S1 normal heart sound present GI: COMMON NORMALS: Normal to inspection, nondistended, normoactive bowel sounds present Extremity: OTHER: Trace to 1+ peripheral edema Neuro: COMMON NORMALS: patient oriented x3, CN's II-XII intact bilaterally, moves all extremities, no focal motor deficits and no sensory deficits noted Psych: COMMON NORMALS: mental status grossly normal and Normal thought process present THOUGHT PROCESS: Normal thought process present Urinary Catheter Management: Gordon: Cath Placed During This Visit: yes Urinary Catheter Date of Insertion: 08/13/21 Urinary Catheter Time of Insertion: 21:45 Data : 08/17/21 07:18 08/17/21 04:41 Micro: Microbiology 08/13/21 23:30 Urine Culture - Final Urine Catheterized A&P Assessment and plan (1) Cardiomyopathy: 55-year-old diabetic gentleman with severe coronary disease status post CABG x3 in 2020 in [place]. Presented with a cardiac arrest at a local public event underwent extensive CPR resuscitation on the scene for over an hour. Cardiac catheterization by Dr. Wood reveals patent TODD to LAD and vein graft to the PDA with apparent occlusion of the circumflex graft. Ejection fraction 20 to 25%. Chest x-ray is relatively clear with cardiomegaly. He is noted to have 10-15 white cells per high-power field in his urine along with 1+ bacteria. He is currently on Rocephin. Urine nitrate was negative. Blood white blood cell count today was 10.3 which is down from 15.3 yesterday. He is afebrile. AICD implantation has been recommended by Dr. Wood in relation to his medically refractory cardiomyopathy. I discussed this carefully with Mr. Hairston and he is in agreement to proceed. Details and risks of the procedure were carefully and frankly discussed. Risks reviewed include the possibility of , stroke, heart attack, major bleeding, infection, infection and may actually require explantation of the entire system, pneumonia, pneumothorax requiring chest tube, organ failure, failure to benefit, prolonged hospital stay, pain after the procedure, need for further procedures, inability to complete the procedure, migration of the leads requiring revision, and possible need for long-term followup. All questions were answered. Appropriate consents have been provided for review and signature. Status: Acute Consult Attestations Medical Necessity Statement: Medically refractory cardiomyopathy with sudden cardiac arrest. Coding Level of Care Code Acute Warehouse Lead for [facility] Diagnoses Cardiomyopathy I42.9
--- NOTE | 2021-08-17 10:26 | P.PN_ITS ---
Subjective Subjective: Patient doing well. No complaints of shortness of breath. Chest stil has pain secondary to CPR. Underwent defibrillator placement today Vitals/I&O/Wt Last Vital Signs Temp 98.7 F 08/16/21 07:30 Pulse 76 08/17/21 08:00 Resp 18 08/17/21 08:00 BP 125/91 08/17/21 08:00 Pulse Ox 99 08/17/21 08:00 08/16/21 08/17/21 08/17/21 22:59 06:59 14:59 Intake Total 960 / 1654.688 480 / 2134.688 0 / 0 Output Total 1050 / 1050 700 / 1750 Balance -90 / 604.688 -220 / 384.688 0 / 0 Weight last 48 hrs Weight 310 lb Weight 296 lb 3.2 oz Physical Exam Narrative: GENERAL: Patient is alert and oriented x 3 NECK: No jugular vein distension. [] HEART: Regular S1 and S2. LUNGS: Diminished breathing sounds ABDOMEN: Soft EXTREMITIES: Lower extremities with 1+ edema bilaterally. Urinary Catheter Management: Gordon: Cath Placed During This Visit: yes Urinary Catheter Date of Insertion: 08/13/21 Urinary Catheter Time of Insertion: 21:45 Data : 08/18/21 04:37 08/18/21 04:37 Micro: Microbiology 08/13/21 23:30 Urine Culture - Final Urine Catheterized A&P Assessment and plan (1) Cardiac arrest: Status: Acute (2) Shock: Status: Acute (3) CHF (congestive heart failure): Status: Acute (4) Coronary artery disease: Status: Acute (5) LYNNE (acute kidney injury): Status: Acute (6) Transaminitis: Status: Acute (7) Abnormal urinalysis: Status: Acute (8) Nycturia: Status: Acute (9) Paroxysmal A-fib: Status: Acute (10) Pneumonia: Status: Acute Plan Patient had out of hospital cardiac arrest with initial rhythm of vfib. Later he had PEA. He had 1 hour of total CPR time with brief intermittent periods of palpable pulse.Given his prolonged resuscitation, no significant purposeful movement, no ST elevation IN on EKG, significantly elevated lactate level and low pH, decision was made to conservatively manage patient and perform cath later once patient is stabilized and shows signs of neurological recovery. On 08/15, patient was considered stable to undergo coronary angiogram that showed patent TODD to LAD and SVG to RCA. Per patient's , he had only 2 patent grafts. No revascularization target. Given patient's cardiac arrest and patent grafts with no revascularization need at this time, will recommended ICD placement for secondary prevention. Dr Huber was consulted today and he un derwenr successful placement of ICD. Continue aspirin and plavix Beta hernan and ACEi Antibiotic therapy per medicine team recommendations. Thank you for involving us with care of this patient. We will continue to follow. Please call with questions. Attestations Medical Necessity Statement*: Care expected to cross 2 midnights. Coding Level of Care Code Acute Metal Cleaner for [facility] Fwd Diagnoses Cardiac arrest I46.9 Shock R57.9 CHF (congestive heart failure) I50.9 Coronary artery disease I25.10 LYNNE (acute kidney injury) N17.9 Transaminitis R74.01 Abnormal urinalysis R82.90 Nycturia R35.1 Paroxysmal A-fib I48.0 Pneumonia J18.9
--- NOTE | 2021-08-17 10:32 | P.ANESASSM_ITS ---
Pre-Anesthetic Assessment Height/Weight: Height 1.85 m Weight 140.614 kg Temp Pulse Resp BP Pulse Ox 98.7 F 76 18 125/91 99 08/16/21 07:30 08/17/21 08:00 08/17/21 08:00 08/17/21 08:00 08/17/21 08:00 Preop Diagnosis: Vfib cardiac arrest Operation Date: 08/15/21 09:00 Proposed Procedures p Cardiac Catheterization(Not Applicable) - Reggie Wood M.D Operation Date: 08/17/21 12:45 Proposed Procedures p Defibrillator Placement(Not Applicable) - Paul Huber MD Familial anesthetic complications: None Was Beta Becca taken within 24 hours: Yes Was Clonidine taken within 24 hours: N/A Social No alcohol and No tobacco Exam alert, oriented x 3, clear to auscultation bilaterally and regular rate & rhythm Airway Submandibular: within normal limits Cervical ROM: within normal limits Mallampati: Class II Dentition: false Pulmonary Shortness of Breath CV/HEM Atrial Fibrillation, Coronary Artery Disease (CABG), Congestive Heart Failure and Hypertension Cardiac arrest echically limited quality echocardiogram because of poor ?ultrasonic windows ?LV is dilated. ?LV systolic function is severely reduced with EF of 20-25%. ?Severe global hypokinesis. ?RV is dilated ?No comparison studies are available Chronic Renal Insufficiency GI Gastroesophageal Reflux Disease Metabolic Hyperlipidemia and Morbid Obesity Anesthetic Plan ASA status: 3 Anesthesia: MAC Medications/Allergies Home Medications Medication Instructions Recorded Confirmed Last Taken Type amiodarone 200 mg tablet 200 mg PO DAILY 08/14/21 08/14/21 Unknown History apixaban 5 mg tablet (Eliquis) 5 mg PO BID 08/14/21 08/14/21 Unknown History atorvastatin 20 mg tablet 20 mg PO DAILY 08/14/21 08/14/21 Unknown History clopidogrel 75 mg tablet (Plavix) 75 mg PO DAILY 08/14/21 08/14/21 Unknown History doxazosin 1 mg tablet 1 mg PO DAILY 08/14/21 08/14/21 Unknown History furosemide 40 mg tablet (Lasix) 40 mg PO DAILY 08/14/21 08/14/21 Unknown History lisinopril 20 mg tablet 20 mg PO DAILY 08/14/21 08/14/21 Unknown History metoprolol tartrate 25 mg tablet 25 mg PO BID 08/14/21 08/14/21 Unknown History omeprazole 20 mg capsule,delayed 20 mg PO DAILY 08/14/21 08/14/21 Unknown History release spironolactone 25 mg tablet 25 mg PO DAILY 08/14/21 08/14/21 Unknown History Allergies Allergy/AdvReac Type Severity Reaction Status Date / Time Penicillins Allergy ALGY-Anaphy Verified 08/14/21 08:43 laxis Current Medications Generic Name Dose Route Start Last Admin Trade Name Freq PRN Reason Stop Dose Admin Acetaminophen 650 mg 08/14/21 08:53 08/16/21 15:09 Acetaminophen 325 Mg Tablet PO 650 mg Q4H PRN Administration MILD PAIN OR INCREASE TEMP Amiodarone HCl 200 mg 08/15/21 10:45 08/16/21 20:37 Amiodarone 200 Mg Tablet PO 200 mg Q12H ENRIQUE Administration Atorvastatin Calcium 20 mg 08/16/21 21:00 08/16/21 20:32 Atorvastatin 40 Mg Tablet PO 20 mg BEDTIME ENRIQUE Administration Carvedilol 6.25 mg 08/16/21 21:00 08/16/21 20:32 Carvedilol 6.25 Mg Tablet PO 6.25 mg BID@0900,2100 ENRIQUE Administration Clopidogrel Bisulfate 75 mg 08/14/21 13:15 08/16/21 08:36 Clopidogrel 75 Mg Tablet OG-TUBE 75 mg DAILY ENRIQUE Administration Dexamethasone 4 mg 08/16/21 09:00 08/16/21 09:15 Dexamethasone 4 Mg Tablet PO 4 mg DAILY ENRIQUE Administration Furosemide 40 mg 08/16/21 16:00 08/16/21 15:58 Furosemide 40 Mg Tablet PO 40 mg BID@08,16 ENRIQUE Administration Ceftriaxone Sodium 1,000 mg/ 50 mls @ 100 mls/hr 08/16/21 10:00 08/16/21 11:01 Sodium Chloride IV Infused Q24H ENRIQUE Infusion Protocol Insulin Human Lispro 0 unit 08/14/21 08:00 08/17/21 08:06 Insulin Lispro 100 Unit/1 Ml SUBCUT Not Given WM&BEDTIME ENRIQUE Protocol Magnesium Oxide 400 mg 08/16/21 18:00 08/16/21 17:22 Magnesium Oxide 400 Mg Tablet PO 400 mg BID ENRIQUE Administration Potassium Chloride 20 meq 08/16/21 18:00 08/16/21 17:22 Potassium Chloride Er 20 Meq Tablet PO 20 meq BID ENRIQUE Administration PFSH Anesthesia Medical History Chronic anticoagulation Coronary artery disease Diabetes Paroxysmal A-fib Surgical History Hx of CABG 2 ya SE hosp in [facility] Data Anesthesia : 08/17/21 07:18 08/17/21 04:41 Short CBC 08/16/21 08/17/21 08/17/21 Range/Units 04:00 04:41 07:18 WBC 15.3 H Cancelled 10.3 H (4.0-10.0) 10^3/uL Hgb 12.9 Cancelled 11.6 L (11.7-16.6) g/dL Hct 38.3 L Cancelled 34.6 L (42.0-52.0) % MCV 91.6 Cancelled 91.5 (80-94) fl Plt Count 172 Cancelled 165 (130-400) 10^3/cmm Neut % (Auto) 85.8 Cancelled 83.8 % Neut # (Auto) 13.11 H Cancelled 8.59 H (1.8-7.7) 10^3/uL BMP 08/16/21 08/17/21 08/17/21 04:00 04:41 04:41 Sodium 140 136 Cancelled Potassium 3.4 L 3.6 Cancelled Chloride 101 100 Cancelled Carbon Dioxide 27 23 Cancelled BUN 27 H 21 H Cancelled Creatinine 1.1 0.7 Cancelled Glucose 142 H 140 H Cancelled Calcium 8.8 8.5 Cancelled Liver Function 08/16/21 08/17/21 08/17/21 Range/Units 04:00 04:41 04:41 Total Bilirubin 1.4 H 0.9 Cancelled (0.15-1.2) mg/dL AST 179 H 149 H Cancelled (0-40) U/L ALT 154 H 117 H Cancelled (0-41) U/L Alkaline Phosphatase 73 63 Cancelled (40-130) IU/L Albumin 4.0 3.6 Cancelled (3.5-5.2) g/dL Urine 08/16/21 Range/Units 08:51 Urine Color Yellow (Yellow) Urine Appearance Hazy A (CLEAR) Urine pH 5 (5-7) Ur Specific [place] 1.025 (1.005-1.030) Urine Protein 1+ H (Negative) Urine Glucose (UA) Norm (Normal) Urine Ketones Negative (Negative) Urine Nitrate Negative (Negative) Urine Bilirubin 1+ H (Negative) Ur Leukocyte Esterase Negative (Negative) Urine RBC 5-10 H (0-2) /hpf Urine WBC 10-15 H (0-5) /hpf Coags 08/15/21 08/15/21 08/16/21 13:05 20:08 04:00 APTT 31.7 D 76.2 H D 48.3 H D-Dimer 3.22 H 08/16/21 08/17/21 12:00 04:41 APTT 27.2 D-Dimer 2.05 H Microbiology 08/13/21 23:30 Urine Culture - Final Urine Catheterized Cardiac Studies: Echocardiogram Limited Views 08/13/21
--- NOTE | 2021-08-17 10:40 | PC.NURSE ---
NPO for surgery. Hold all morning medications per Dr. Huber.
--- NOTE | 2021-08-17 10:42 | PC.NURSE ---
To OR at at 1035 via bed by OR staff. Family called and notified earlier about surgery. Family stated they wouldn't make it in time to see him go to OR but wanted surgery to proceed. Patient AAOx4, VSS.
[2021-08-17] MEDS: lidocaine 2% INJ 20 mL INJECTION (11:11)
[2021-08-17] MEDS: vancomycin 1,000 MG SDV 1000 MG IRRIGATION (11:11)
--- NOTE | 2021-08-17 12:06 | PC.OT ---
PATIENT ON HOLD TODAY DUE TO SCHEDULED SURGERY.
--- NOTE | 2021-08-17 12:56 | PM.OP ---
Operative Report Date of procedure: August 17, 2021 Pre-op diagnosis: Preop Diagnosis Vfib cardiac arrest; medically refractory cardiomyopathy Post-op diagnosis: same Procedure done: Dual-lead automatic implantable cardiac defibrillator implantation Implants: Atrial lead Ventricular lead AICD generator Pathology: none sent Surgeon: Paul Huber Anesthesia: MAC and Local Complications: None: Post procedure chest x-ray pending Condition: stable Disposition: ICU Brief History: Mr. Hairston is a 55-year-old gentleman who 4 days ago suffered a cardiac arrest while at a local racetrack. He underwent extended CPR and several episodes of external cardioversion. Resuscitation was over 1 hour. He was transported to the emergency department at [facility] where he had another episode of ventricular fibrillation and again was cardioverted. He has a prior history for CABG x3 in 2019 in [place], [place]. Left heart catheterization during this admission by Dr. Wood reveals patent TODD to LAD and patent vein graft to the PDA. Apparently there is no known occlusion to the vein graft to the OMB. He has severe cardiomyopathy with an ejection fraction of 20 to 25% and AICD implantation has been recommended for prophylaxis from life-threatening arrhythmia. Rationale, details and risk of the procedure were carefully and frankly discussed with Mr. Hairston. Appropriate consents have been reviewed and signed. Procedure: Procedure: Mr. Hairston was taken to the OR suite and placed in the supine position over a shoulder roll. He received conscious sedation with continuous anesthesia monitoring by. His entire chest was sterilely prepped and draped. 1% lidocaine was infiltrated in the left subclavicular region. While in Trendelenburg position, utilizing modified seldinger technique, a guidewire was placed in the left subclavian vein. This was confirmed in position by fluoroscopy. Next, after infiltration with lidocaine, a subcutaneous pocket was created beginning from the exit point of the guidewire and extending laterally and inferiorly. Cautery was utilized to create the pocket just above the pectoralis musculature. Hemostasis was confirmed. An antibiotic-soaked sponge was placed in the wound. A dilator and tear-away sheath was placed over the guidewire and advanced under fluoroscopy. Guidewire and dilator were removed. Next using a combination of curved and straight stylettes, the right ventricular lead was placed in position by fluoroscopy. The distal screw was extended. Interrogation was then performed confirming appropriate parameters. The tear-away sheath was then removed and the ventricular lead was sewn to the floor of the subcutaneous pocket. Next, atrial guidewire and lead were placed in a similar fashion with fluoroscopic guidance. Generator was brought into the field, and after confirmation of hemostasis in the subcutaneous pocket, the leads was connected to the generator with appropriate capture. The entire system was interrogated by fluoroscopy. Leads and generator were secured in the pocket. Sponge and needle count was correct. The wound was then closed in 2 layers of 3-0 Vicryl suture. Skin was reapproximated in a subcuticular manner with 4-0 Monocryl suture. A pressure dressing was applied. The left arm was placed in a sling. Mr. Hairston had equal breath sounds bilaterally. He was then transferred to the ICU, where chest x-ray is currently pending. Family had been contacted by phone at completion of the procedure. Following are the specifics of this system: Right ventricular lead is 62 cm and model 6935M. Serial number [id number] Ventricular lead had sensing of 6.4 mV with an impedance of 811 ohms. Threshold was 0.75V Atrial lead is 52 cm. Model number [id number] Right atrial lead sensing 1.5 mV. Impedance 544 ohms. Capture threshold 1.4 V [employer] AICD generator: Model # [id number] Serial # [id number]
--- NOTE | 2021-08-17 13:21 | XR_ITS ---
WS: [id number] Portable AP upright chest, 08/17/2021 Clinical Data: s/p aicd implantation Comparison: Portable chest, 08/16/2021. Findings: The heart remains enlarged. There is a permanent pacemaker and defibrillator which has been inserted into the heart. There is a right internal jugular venous catheter which ends in the superio r vena cava. The pulmonary vascularity is mildly prominent. No nodules, masses or effusions are seen. Midline sternotomy sutures and monitor leads are present. XR/XR chest 1V portable [id number] Impression: 1. Cardiomegaly and permanent pacemaker. 2. Mild pulmonary vascular congestion.
--- NOTE | 2021-08-17 13:30 | PC.NURSE ---
Back from OR at 1312, VSS, AAOx4, dressing to left chest c/d/i, shoulder immobilizer on. Nurse attempted to call family to notify them but no answer. Patient texting family.
--- NOTE | 2021-08-17 14:00 | ANE.PACU2 ---
Inpatient post-anesthesia follow up: Airway intact: Yes Vital signs: Temperature 98.7 F Pulse Rate 80 Respiratory Rate 14 Blood Pressure 153/99 Pulse Oximetry 98 Oxygen Delivery Me thod Nasal Cannula Oxygen Flow Rate 2 Fraction of Inspir ed Oxygen 40 Hydration adequate: Yes Nausea and vomiting: No Pain level: 2 Mental status: Baseline
[2021-08-17] MEDS: FUROsemide 40 mg Tablet PO (15:12)
[2021-08-17] MEDS: HYDROcodone-acetaminophen 5-325 mg Tablet 1 TAB PO ×2 (15:12→20:12)
[2021-08-17 17:18] LABS: Glucose Point of Care 156 mg/dL (70-110)
[2021-08-17] MEDS: acetaminophen 325 mg Tablet 650 MG PO (18:11)
[2021-08-17] MEDS: magnesium oxide 400 mg tablet PO (18:12)
[2021-08-17] MEDS: insulin lispro 100 unit/1 mL SUBCUT ×2 (18:12→20:32)
[2021-08-17] MEDS: potassium chloride ER 20 mEq Tablet PO (18:12)
[2021-08-17] MEDS: amiodarone 200 mg Tablet PO (20:12)
[2021-08-17] MEDS: atorvastatin 40 mg Tablet 20 MG PO (20:12)
[2021-08-17] MEDS: carvedilol 6.25 mg Tablet PO (20:12)
[2021-08-17 20:43] LABS: Glucose Point of Care 141 mg/dL (70-110)
[2021-08-18] VITALS (32 sets, daily range): BP systolic 114–152; BP diastolic 77–118; PULSE 65–92; RESP 11–32; TEMP 36.6; O2SAT 94–99; BMI 41.8
[2021-08-18 04:47] LABS: Basophils % 0.1 %; Eosinophils % 0.2 %; Hematocrit 31.6 % (42.0-52.0); Hemoglobin 10.9 g/dL (11.7-16.6); Lymphocytes # 1.7 10^3/uL (0.8-4.8); Lymphocytes % 18.9 %; Mean Corpuscular HGB Conc 34.5 g/dL (30.0-36.0); Mean Corpuscular Hemoglobin 30.5 pg (28.0-34.0); Mean Corpuscular Volume 88.5 fl (80-94); Mean Platelet Volume 10.4 fL (7.4-10.4); Monocytes % 10.5 %; Neutrophils # 6.34 10^3/uL (1.8-7.7); Neutrophils % 69.9 %; Nucleated Red Blood Cells % 0 %; Platelet Count 163 10^3/cmm (130-400); Red Blood Count 3.57 10^6/uL (4.1-5.3); Red Cell Distribution Width 13.1 % (12.1-15.1); White Blood Count 9.1 10^3/uL (4.0-10.0)
[2021-08-18 05:09] LABS: Anion Gap 13.4 (5-19); Blood Urea Nitrogen 17 mg/dL (6-20); Calcium 8.3 mg/dL (8.5-10.5); Carbon Dioxide 26 mmol/L (22-29); Chloride 100 mmol/L (98-107); Glomerular Filtration Rate 116.2 mL/min (90-130); Glucose 132 mg/dL (65-115); Magnesium 1.9 mg/dL (1.7-2.3); Osmolality Calculated 285 mOsm/kg (285-295); Potassium 3.4 mmol/L (3.5-5.1); Sodium 136 mmol/L (136-145)
[2021-08-18] MEDS: carvedilol 6.25 mg Tablet PO ×2 (08:13→21:05)
[2021-08-18] MEDS: FUROsemide 40 mg Tablet PO ×2 (08:13→16:21)
[2021-08-18] MEDS: dexamethasone 4 mg Tablet PO (08:14)
[2021-08-18] MEDS: pantoprazole DR 40 mg Tablet PO (08:14)
[2021-08-18] MEDS: magnesium oxide 400 mg tablet PO ×2 (08:14→17:52)
[2021-08-18] MEDS: losartan 50 mg Tablet 12.5 MG PO (08:14)
[2021-08-18] MEDS: potassium chloride ER 20 mEq Tablet PO ×2 (08:14→17:52)
[2021-08-18] MEDS: HYDROcodone-acetaminophen 5-325 mg Tablet 1 TAB PO ×2 (08:22→16:26)
--- NOTE | 2021-08-18 09:40 | PM.PN ---
Subjective Subjective: Patient is overall doing well. S/p ICD placement yesterday Vitals/I&O/Wt Last Vital Signs Temp 98.7 F 08/16/21 07:30 Pulse 75 08/18/21 08:54 Resp 15 08/18/21 06:00 BP 125/86 08/18/21 06:00 Pulse Ox 99 08/18/21 08:54 08/17/21 08/18/21 08/18/21 22:59 06:59 14:59 Intake Total 240 / 740 Output Total 1550 / 1550 500 / 2050 Balance -1310 / -810 -500 / -1310 Weight last 48 hrs Weight 317 lb 3.2 oz Weight 310 lb Physical Exam Narrative: GENERAL: Patient is alert and oriented x 3 NECK: No jugular vein distension. [] HEART: Regular S1 and S2. LUNGS: Diminished breathing sounds ABDOMEN: Soft EXTREMITIES: Lower extremities with 1+ edema bilaterally. Urinary Catheter Management: Gordon: Cath Placed During This Visit: yes Urinary Catheter Date of Insertion: 08/13/21 Urinary Catheter Time of Insertion: 21:45 Data : 08/18/21 04:37 08/18/21 04:37 A&P Assessment and plan (1) Cardiac arrest: Status: Acute (2) Shock: Status: Acute (3) CHF (congestive heart failure): Status: Acute (4) Coronary artery disease: Status: Acute (5) LYNNE (acute kidney injury): Status: Acute (6) Transaminitis: Status: Acute (7) Abnormal urinalysis: Status: Acute (8) Nycturia: Status: Acute (9) Paroxysmal A-fib: Status: Acute (10) Pneumonia: Status: Acute Plan Patient had out of hospital cardiac arrest with initial rhythm of vfib. Later he had PEA. He had 1 hour of total CPR time with brief intermittent periods of palpable pulse.Given his prolonged resuscitation, no significant purposeful movement, no ST elevation [place] on EKG, significantly elevated lactate level and low pH, decision was made to conservatively manage patient and perform cath later once patient is stabilized and shows signs of neurological recovery. On 08/15, patient was considered stable to undergo coronary angiogram that showed patent TODD to LAD and SVG to RCA. Per patient's , he had only 2 patent grafts. No revascularization target. Given patient's cardiac arrest and patent grafts with no revascularization need at this time,ICD placement was recommended for secondary prevention. Dr Huber was consultedand he underwenr successful placement of ICD. Continue aspirin and plavix Beta hernan and ACEi Antibiotic therapy per medicine team recommendations. Thank you for involving us with care of this patient. We will continue to follow. Please call with questions. Attestations Medical Necessity Statement*: Care expected to cross 2 midnights. Coding Level of Care Code Acute Recreational Therapist for [facility] Fwd Diagnoses Cardiac arrest I46.9 Shock R57.9 CHF (congestive heart failure) I50.9 Coronary artery disease I25.10 LYNNE (acute kidney injury) N17.9 Transaminitis R74.01 Abnormal urinalysis R82.90 Nycturia R35.1 Paroxysmal A-fib I48.0 Pneumonia J18.9
[2021-08-18 10:00] LABS: Glucose Point of Care 98 mg/dL (70-110)
[2021-08-18] MEDS: spironolactone 25 mg Tablet PO (10:35)
[2021-08-18] MEDS: amiodarone 200 mg Tablet PO ×2 (10:36→17:53)
[2021-08-18] MEDS: cefTRIAXone 1,000 MG in sodium chloride 0.9% (plus) 50 ML 100 MG IV (10:36)
--- NOTE | 2021-08-18 10:37 | PC.CHAP ---
Pastoral Care Encounter/Spiritual Assessment Type of Contact [] Declined group leader visit [] Patient/Family/Request visit [] Outpatient visit [] Follow-up visit [] Physician referral [] Code/Alert [x] Routine visit [] Staff referral [] Actively dying [] Patient sleeping [] Family support [] [] Out of room [] Palliative care [] [] Receiving care in room [] Pre-surgical visit [] Trauma [] Long length of stay [x] ICU visit [] Other: Relational/Emotional Strength [] Patient feels connected with others/family/visitors/staff [] Distress [] Loneliness/isolation [] Abandonment Spirituality of Patient [] Person of [place] [] Attends Bahai of their [place] [] Believes in Prayer [] Reads Bible or Alevism materials [] There are Spiritual issues to be addressed Water Aerobics Instructor Interventions [x] Prayer [] Active listening [] Non-anxious presence [] Spiritual/emotional support [] Crisis/trauma care [] Spiritual counseling [] Bereavement support [] Provided bereavement packet [] Provided Bible/devotional materials [] Provided toy/stuffed animal, coloring book to patient or family member [] Provided Communion [] Anointing/[place] [] Salvation [x] Completed spiritual assessment [] Other: Impact on Illness or Injury [] Angry [] Fearful [] Anxious [] Often cries [] Exhaustion [] Unable to work [] Unable to attend congregation [] Unable to walk/stand [] Unable to read [] Unable to drive [] Unable to eat/drink [] Unable to sleep [] Unable to be with family [] Patient intubated [] Other: Summary Time spent with patient
[2021-08-18 12:33] LABS: Glucose Point of Care 127 mg/dL (70-110)
--- NOTE | 2021-08-18 12:40 | P.PN_ITS ---
Subjective Subjective: 55-year-old male underwent pacer defibrillator placement last evening with Dr. Huber. There has been no activity from the pacer defibrillator. Patient states he feels well Vitals/I&O/Wt Last Vital Signs Temp 98.7 F 08/16/21 07:30 Pulse 75 08/18/21 08:54 Resp 15 08/18/21 06:00 BP 125/86 08/18/21 06:00 Pulse Ox 99 08/18/21 08:54 08/17/21 08/18/21 08/18/21 22:59 06:59 14:59 Intake Total 240 / 740 120 / 120 Output Total 1550 / 1550 500 / 2050 1500 / 1500 Balance -1310 / -810 -500 / -1310 -1380 / -1380 Weight last 48 hrs Weight 143.879 kg Weight 140.614 kg Physical Exam Narrative: General well-developed well-nourished burly male 6 foot 2 thick chested huge hands in no acute cardiopulmonary distress CV regular rate and rhythm Lungs clear to auscultation bilaterally Abdomen positive bowel sounds soft nontender Calves trace to 1 edema Urinary Catheter Management: Gordon: Cath Placed During This Visit: yes Urinary Catheter Date of Insertion: 08/13/21 Urinary Catheter Time of Insertion: 21:45 Data : 08/18/21 04:37 08/18/21 04:37 A&P Assessment and plan (1) COVID-19: Hypoxemia basically resolved however patient has coronary artery disease, diabetes and atrial fibrillation as risk factors. Continue with Decadron Status: Acute (2) Ventricular fibrillation: He had V. fib or V. tach cardiac arrest in the field and recovered well. Defibrillator placed 08/17/2021 patient to transfer to medical floor and continue with increased mobility on telemetry Status: Acute (3) Paroxysmal A-fib: resume apixaban Status: Acute (4) UTI (urinary tract infection): Continue Rocephin will treat for total of 7 days antibiotic therapy Status: Acute (5) LYNNE (acute kidney injury): Essentially resolved Status: Acute (6) Coronary artery disease: Stable with chronic ischemic cardiomyopathy and low EF but all culprit lesions amenable to intervention have been completed. He had an angiogram earlier this hospitalization. Continue with Plavix and apixaban Status: Acute (7) Diabetes: Diabetic diet and sliding scale insulin. Status: Acute Attestations Medical Necessity Statement*: Increase activity on telemetry following cardiac arrest and now defibrillator placement Critical Care Time: The high probability of a clinically significant, sudden or life threatening deterioration of the patient's [cardiac system(s) required my full and direct attention, intervention and personal management. The critical care time is as shown. This time is in addition to time spent performing any reported procedures but includes the following: [x] Data and vital sign review and interpretation [x] Patient assessment, examination and intervention [x] Documentation [x] Medication orders and management Critical Care Time (min): 30 Coding Level of Care Code Acute Field Sales Executive for [facility] Fwd Diagnoses COVID-19 U07.1 Ventricular fibrillation I49.01 Paroxysmal A-fib I48.0 UTI (urinary tract infection) N39.0 LYNNE (acute kidney injury) N17.9 Coronary artery disease I25.10 Diabetes E11.9
[2021-08-18 17:17] LABS: Glucose Point of Care 192 mg/dL (70-110)
[2021-08-18] MEDS: apixaban 5 mg Tablet PO (17:53)
[2021-08-18 21:02] LABS: Glucose Point of Care 142 mg/dL (70-110)
[2021-08-18] MEDS: atorvastatin 40 mg Tablet 20 MG PO (21:05)
[2021-08-19] VITALS (10 sets, daily range): BP systolic 92–148; BP diastolic 67–88; PULSE 66–86; RESP 16–20; TEMP 36.3–36.7; O2SAT 95–99; BMI 41.3
[2021-08-19] MEDS: HYDROcodone-acetaminophen 5-325 mg Tablet 1 TAB PO ×3 (00:02→20:28)
[2021-08-19] MEDS: FUROsemide 40 mg Tablet PO ×2 (09:57→16:15)
[2021-08-19] MEDS: potassium chloride ER 20 mEq Tablet PO ×2 (09:58→17:38)
[2021-08-19] MEDS: apixaban 5 mg Tablet PO ×2 (09:58→17:37)
[2021-08-19] MEDS: magnesium oxide 400 mg tablet PO ×2 (09:58→17:37)
[2021-08-19] MEDS: dexamethasone 4 mg Tablet PO (09:58)
[2021-08-19] MEDS: pantoprazole DR 40 mg Tablet PO (09:58)
[2021-08-19] MEDS: spironolactone 25 mg Tablet PO (09:58)
[2021-08-19] MEDS: amiodarone 200 mg Tablet PO ×2 (09:59→17:38)
[2021-08-19] MEDS: losartan 50 mg Tablet 12.5 MG PO (09:59)
[2021-08-19] MEDS: carvedilol 6.25 mg Tablet PO ×2 (09:59→20:28)
[2021-08-19] MEDS: doxazosin 4 mg Tablet 1 MG PO (10:00)
[2021-08-19] MEDS: cefTRIAXone 1,000 MG in sodium chloride 0.9% (plus) 50 ML 100 MG IV (10:00)
--- NOTE | 2021-08-19 11:04 | PM.PN ---
Subjective Subjective: Patient has been transferred out of the ICU. Doing well. No complaints of chest pain or shortness of breath Vitals/I&O/Wt Last Vital Signs Temp 97.4 F L 08/19/21 08:00 Pulse 79 08/19/21 08:00 Resp 18 08/19/21 08:00 BP 92/67 08/19/21 09:59 Pulse Ox 96 08/19/21 08:00 08/18/21 08/19/21 08/19/21 22:59 06:59 14:59 Intake Total 720 / 1090 480 / 1570 530 / 530 Output Total 1225 / 3725 200 / 3925 Balance -505 / -2635 280 / -2355 530 / 530 Weight last 48 hrs Weight 313 lb 12.8 oz Weight 317 lb 5 oz Weight 317 lb 3.2 oz Physical Exam Narrative: GENERAL: Patient is alert and oriented x 3 NECK: No jugular vein distension. [] HEART: Regular S1 and S2. LUNGS: Diminished breathing sounds ABDOMEN: Soft EXTREMITIES: Lower extremities with 1+ edema bilaterally. Urinary Catheter Management: Gordon: Cath Placed During This Visit: yes Urinary Catheter Date of Insertion: 08/13/21 Urinary Catheter Time of Insertion: 21:45 Data : 08/18/21 04:37 08/18/21 04:37 Micro: Microbiology 08/14/21 02:00 Blood Culture - Final Blood NO GROWTH AFTER 5 DAYS 08/14/21 01:41 Blood Culture - Final Blood NO GROWTH AFTER 5 DAYS A&P Assessment and plan (1) Cardiac arrest: Status: Acute (2) Shock: Status: Acute (3) CHF (congestive heart failure): Status: Acute (4) Coronary artery disease: Status: Acute (5) LYNNE (acute kidney injury): Status: Acute (6) Transaminitis: Status: Acute (7) Abnormal urinalysis: Status: Acute (8) Nycturia: Status: Acute (9) Paroxysmal A-fib: Status: Acute (10) Pneumonia: Status: Acute Plan Patient had out of hospital cardiac arrest with initial rhythm of vfib. Later he had PEA. He had 1 hour of total CPR time with brief intermittent periods of palpable pulse.Given his prolonged resuscitation, no significant purposeful movement, no ST elevation ID on EKG, significantly elevated lactate level and low pH, decision was made to conservatively manage patient and perform cath later once patient is stabilized and shows signs of neurological recovery. On 08/15, patient was considered stable to undergo coronary angiogram that showed patent TODD to LAD and SVG to RCA. Per patient's , he had only 2 patent grafts. No revascularization target. Given patient's cardiac arrest and patent grafts with no revascularization need at this time,ICD placement was recommended for secondary prevention. Dr Huber was consulted and he underwent successful placement of ICD. Continue eliquis. Will start plavix Continue Coreg. Uptitrating losartan Antibiotic therapy per medicine team recommendations. Thank you for involving us with care of this patient. We will continue to follow. Please call with questions. Attestations Medical Necessity Statement*: Care expected to cross 2 midnights. Coding Level of Care Code Acute Liquid Center Assembler for [facility] Diagnoses Cardiac arrest I46.9 Shock R57.9 CHF (congestive heart failure) I50.9 Coronary artery disease I25.10 LYNNE (acute kidney injury) N17.9 Transaminitis R74.01 Abnormal urinalysis R82.90 Nycturia R35.1 Paroxysmal A-fib I48.0 Pneumonia J18.9
[2021-08-19 12:25] LABS: Glucose Point of Care 133 mg/dL (70-110)
--- NOTE | 2021-08-19 15:53 | P.PN_ITS ---
Subjective Subjective: Patient is overall doing well. S/p ICD placement 08/17/2021. He states he has a tickle in his throat like he needs to cough something up as well as sinus drainage. States the phlegm is scant yellow. It is not dark. He has pain in his chest from the CPR exacerbated by coughing. Patient tells me that the cough is no better or worse and he is not short of breath. He does have to use a pillow for the cough and is fearful of the pain. Patient has had COVID once before and was COVID this time. He is also had Moderna vaccine but not the booster. His ride is his son who lives with him and also has had Moderna vaccines Vitals/I&O/Wt Last Vital Signs Temp 97.5 F L 08/19/21 15:27 Pulse 73 08/19/21 15:27 Resp 20 H 08/19/21 15:27 BP 122/82 08/19/21 15:27 Pulse Ox 95 08/19/21 15:27 08/19/21 08/19/21 08/19/21 06:59 14:59 22:59 Intake Total 480 / 1570 890 / 890 Output Total 200 / 3925 800 / 800 Balance 280 / -2355 90 / 90 Weight last 48 hrs Weight 142.337 kg Weight 142.337 kg Weight 143.931 kg Weight 143.879 kg Physical Exam Narrative: General well-developed well-nourished burly male 6 foot 2 thick chested huge hands in no acute cardiopulmonary distress CV regular rate and rhythm Lungs clear to auscultation bilaterally Abdomen positive bowel sounds soft nontender Calves trace to 1 edema Right IJ catheter site nontender Urinary Catheter Management: Gordon: Cath Placed During This Visit: yes Urinary Catheter Date of Insertion: 08/13/21 Urinary Catheter Time of Insertion: 21:45 Data : 08/18/21 04:37 08/18/21 04:37 Micro: Microbiology 08/14/21 02:00 Blood Culture - Final Blood NO GROWTH AFTER 5 DAYS 08/14/21 01:41 Blood Culture - Final Blood NO GROWTH AFTER 5 DAYS A&P Assessment and plan (1) COVID-19: Hypoxemia basically resolved however patient has coronary artery disease, diabetes and atrial fibrillation as risk factors. Continue with Decadron Status: Acute (2) Ventricular fibrillation: He had V. fib or V. tach cardiac arrest in the field and recovered well. Defibrillator placed 08/17/2021 patient to transfer to medical floor and continue with increased mobility on telemetry Continue with apixaban anticoagulation He is also on amiodarone for antiarrhythmic Status: Acute (3) Paroxysmal A-fib: resume apixaban amiodarone was increased to 200 mg twice a day Status: Acute (4) UTI (urinary tract infection): Continue Rocephin will treat for total of 7 days antibiotic therapy Add doxycycline for bronchitis Status: Acute (5) Coronary artery disease: Stable with chronic ischemic cardiomyopathy and low EF but all culprit lesions amenable to intervention have been completed. He had an angiogram earlier this hospitalization. Continue with Plavix and apixaban Status: Acute (6) Diabetes: Diabetic diet and sliding scale insulin. Status: Acute Plan Bronchitis I am unclear if this is bacterial bronchitis or that he just has COVID but due to the severity of his pain from hours worth of CPR will add doxycycline 100 mg twice a day Attestations Medical Necessity Statement*: Monitoring on telemetry. Increasing activity switch to oral medications and discharge plan for tomorrow Time Spent in Patient Care: Greater than 35 minutes Coding Level of Care Code Acute Landscape Architecture Teacher for [facility] Diagnoses COVID-19 U07.1 Ventricular fibrillation I49.01 Paroxysmal A-fib I48.0 UTI (urinary tract infection) N39.0 Coronary artery disease I25.10 Diabetes E11.9
[2021-08-19 16:50] LABS: Glucose Point of Care 125 mg/dL (70-110)
[2021-08-19] MEDS: doxycycline 100 mg Tablet PO (17:37)
[2021-08-19] MEDS: atorvastatin 40 mg Tablet 20 MG PO (20:28)
[2021-08-19 22:36] LABS: Glucose Point of Care 157 mg/dL (70-110)
[2021-08-20] VITALS: BP 158/87; PULSE 59; RESP 17; TEMP 36.5; O2SAT 99
[2021-08-20 04:00] VITALS: BP 137/91; PULSE 71; RESP 18; TEMP 36.8; O2SAT 98
[2021-08-20 04:47] VITALS: PULSE 69
[2021-08-20 06:20] LABS: Glucose Point of Care 110 mg/dL (70-110)
--- NOTE | 2021-08-20 07:23 | PM.PN ---
Subjective Subjective: Patient is doing well. no complaints of chest pain. Vitals/I&O/Wt Last Vital Signs Temp 98.2 F 08/20/21 04:00 Pulse 69 08/20/21 04:47 Resp 18 08/20/21 04:00 BP 137/91 08/20/21 04:00 Pulse Ox 98 08/20/21 04:00 08/19/21 08/20/21 08/20/21 22:59 06:59 14:59 Intake Total 480 / 1370 1680 / 3050 Output Total 1500 / 2300 2350 / 4650 Balance -1020 / -930 -670 / -1600 Weight last 48 hrs Weight 315 lb 3.2 oz Weight 313 lb 12.8 oz Weight 313 lb 12.8 oz Weight 317 lb 5 oz Physical Exam Narrative: GENERAL: Patient is alert and oriented x 3 NECK: No jugular vein distension. [] HEART: Regular S1 and S2. LUNGS: Diminished breathing sounds ABDOMEN: Soft EXTREMITIES: Lower extremities with 1+ edema bilaterally. Urinary Catheter Management: Gordon: Cath Placed During This Visit: yes Urinary Catheter Date of Insertion: 08/13/21 Urinary Catheter Time of Insertion: 21:45 Data : 08/20/21 09:15 08/20/21 09:15 A&P Assessment and plan (1) Cardiac arrest: Status: Acute (2) Shock: Status: Resolved (3) CHF (congestive heart failure): Status: Acute (4) Coronary artery disease: Status: Acute (5) LYNNE (acute kidney injury): Status: Acute (6) Transaminitis: Status: Resolved (7) Abnormal urinalysis: Status: Resolved (8) Nycturia: Status: Deleted (9) Paroxysmal A-fib: Status: Acute (10) Pneumonia: Status: Deleted Plan Patient had out of hospital cardiac arrest with initial rhythm of vfib. Later he had PEA. He had 1 hour of total CPR time with brief intermittent periods of palpable pulse.Given his prolonged resuscitation, no significant purposeful movement, no ST elevation [place] on EKG, significantly elevated lactate level and low pH, decision was made to conservatively manage patient and perform cath later once patient is stabilized and shows signs of neurological recovery. On 08/15, patient was considered stable to undergo coronary angiogram that showed patent TODD to LAD and SVG to RCA. Per patient's , he had only 2 patent grafts. No revascularization target. Given patient's cardiac arrest and patent grafts with no revascularization need at this time,ICD placement was recommended for secondary prevention. Dr Huber was consulted and he underwent successful placement of ICD. Continue eliquis and plavix Continue Coreg and losartan Antibiotic therapy per medicine team recommendations. Thank you for involving us with care of this patient. Patient is stable to be discharged from cardiology standpoint. Please call with questions. Attestations Medical Necessity Statement*: Care expected to cross 2 midnights. Coding Level of Care Code Acute [employer] for [facility] Fwd Diagnoses Cardiac arrest I46.9 Shock R57.9 CHF (congestive heart failure) I50.9 Coronary artery disease I25.10 LYNNE (acute kidney injury) N17.9 Transaminitis R74.01 Abnormal urinalysis R82.90 Nycturia R35.1 Paroxysmal A-fib I48.0 Pneumonia J18.9
[2021-08-20 07:33] VITALS: BP 135/83; PULSE 61; RESP 16; TEMP 36.7; O2SAT 99
[2021-08-20] MEDS: clopidogrel 75 mg Tablet PO (07:59)
[2021-08-20] MEDS: carvedilol 6.25 mg Tablet PO (07:59)
[2021-08-20] MEDS: dexamethasone 4 mg Tablet PO (07:59)
[2021-08-20] MEDS: losartan 50 mg Tablet 25 MG PO (07:59)
[2021-08-20] MEDS: amiodarone 200 mg Tablet PO (08:00)
[2021-08-20] MEDS: pantoprazole DR 40 mg Tablet PO (08:00)
[2021-08-20] MEDS: FUROsemide 40 mg Tablet PO (08:00)
[2021-08-20] MEDS: apixaban 5 mg Tablet PO (08:00)
[2021-08-20] MEDS: doxycycline 100 mg Tablet PO (08:00)
[2021-08-20] MEDS: HYDROcodone-acetaminophen 5-325 mg Tablet 1 TAB PO ×2 (08:00→15:48)
[2021-08-20] MEDS: magnesium oxide 400 mg tablet PO (08:00)
[2021-08-20] MEDS: potassium chloride ER 20 mEq Tablet PO (08:00)
[2021-08-20] MEDS: spironolactone 25 mg Tablet PO (08:00)
[2021-08-20 09:35] LABS: Basophils % 0.1 %; Eosinophils # 0.1 10^3/uL (0.0-0.8); Eosinophils % 0.7 %; Hematocrit 33.2 % (42.0-52.0); Hemoglobin 11.4 g/dL (11.7-16.6); Lymphocytes # 2.3 10^3/uL (0.8-4.8); Lymphocytes % 18.9 %; Mean Corpuscular HGB Conc 34.3 g/dL (30.0-36.0); Mean Corpuscular Hemoglobin 30.5 pg (28.0-34.0); Mean Corpuscular Volume 88.8 fl (80-94); Mean Platelet Volume 10.2 fL (7.4-10.4); Monocytes # 0.8 10^3/uL (0.2-0.9); Monocytes % 6.7 %; Neutrophils # 8.67 10^3/uL (1.8-7.7); Neutrophils % 72.6 %; Nucleated Red Blood Cells % 0 %; Platelet Count 178 10^3/cmm (130-400); Red Blood Count 3.74 10^6/uL (4.1-5.3); Red Cell Distribution Width 13.2 % (12.1-15.1); White Blood Count 11.9 10^3/uL (4.0-10.0)
[2021-08-20 09:43] LABS: Anion Gap 13.6 (5-19); Blood Urea Nitrogen 15 mg/dL (6-20); Calcium 9.2 mg/dL (8.5-10.5); Carbon Dioxide 32 mmol/L (22-29); Chloride 97 mmol/L (98-107); Glomerular Filtration Rate 116.2 mL/min (90-130); Glucose 139 mg/dL (65-115); Magnesium 1.9 mg/dL (1.7-2.3); Osmolality Calculated 291 mOsm/kg (285-295); Potassium 3.6 mmol/L (3.5-5.1); Sodium 139 mmol/L (136-145)
[2021-08-20 10:32] VITALS: PULSE 61; O2SAT 99
[2021-08-20] MEDS: cefTRIAXone 1,000 MG in sodium chloride 0.9% (plus) 50 ML 100 MG IV (11:18)
[2021-08-20 11:33] VITALS: BP 124/75; PULSE 61; RESP 16; TEMP 36.7; O2SAT 99
[2021-08-20 11:48] LABS: Glucose Point of Care 113 mg/dL (70-110)
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
--- NOTE | 2021-08-23 09:41 | PC.NURSE ---
Per [facility] at [facility], pt was only dispensed a 7 day supply of hydrocodone-acetaminophen 5-325 mg d/t not having a chronic pain condition or previously taking the medication.
== END 2021-08-20 15:58 | disposition home health service (06) | DRG 224 ==
LOC: ER 08-14 01:09 → ICU 08-14 01:35 → MEDSURG 08-18 16:33
PROVIDERS: Internal Medicine; Thoracic Surgery (Cardiothoracic Vascular Surgery); Admitting Provider Internal Medicine; Emergency Provider Emergency Medicine; Visit Provider Internal Medicine
PROC: B211YZZ Fluoroscopy of Multiple Coronary Arteries using Other Contrast (ICD-10-PCS; principal; 2021-08-15 09:00)
PROC: 0JH608Z Insertion of Defibrillator Generator into Chest Subcutaneous Tissue and Fascia, Open Approach (ICD-10-PCS; CPT 33249; principal; 2021-08-17 12:45)
DX: I46.9 Cardiac arrest, cause unspecified (principal); U07.1 COVID-19; J69.0 Pneumonitis due to inhalation of food and vomit; R57.9 Shock, unspecified; E87.1 Hypo-osmolality and hyponatremia; Z68.41 Body mass index [BMI] 40.0-44.9, adult; I50.42 Chronic combined systolic (congestive) and diastolic (congestive) heart failure; N17.9 Acute kidney failure, unspecified; I42.9 Cardiomyopathy, unspecified; N39.0 Urinary tract infection, site not specified; I49.01 Ventricular fibrillation; I25.10 Atherosclerotic heart disease of native coronary artery without angina pectoris; Z95.1 Presence of aortocoronary bypass graft; R31.29 Other microscopic hematuria; E66.9 Obesity, unspecified; E11.65 Type 2 diabetes mellitus with hyperglycemia; I48.0 Paroxysmal atrial fibrillation; I11.0 Hypertensive heart disease with heart failure; Z86.16 Personal history of COVID-19; Z79.02 Long term (current) use of antithrombotics/antiplatelets; Z79.01 Long term (current) use of anticoagulants; E78.5 Hyperlipidemia, unspecified; R35.1 Nocturia
CPT/HCPCS: 36415; 36416; 36556; 36592; 36600; 51702; 70450; 71045; 71275; 76000; 76705; 80048; 80051; 80053; 80061; 80306; 81001; 81003; 82140; 82330; 82550; 82607; 82746; 82803; 82805; 82962; 83036; 83605; 83690; 83735; 83880; 84439; 84443; 84484; 85025; 85049; 85378; 85610; 85730; 87040; 87086; 87493; 87635; 92950; 93005; 93308; 93455; 94002; 94003; 94799; 96360; 96365; 96366; 96367; 96368; 96372; 97110; 97116; 97161; 97166; 97530; 97535; 99291; 99292; C1721; C1751; C1760; C1769; C1777; C1779; C1887; C1894; C9113; J0171; J0282; J0456; J0696; J1100; J1644; J1650; J1815; J1940; J1956; J2250; J2270; J2704; J3010; J3370; J3475; J7030; J7040; J7050; J7060; J8540; Q9967

== ENCOUNTER → 2021-12-24 08:08 | Outpatient (BNVA) | payer OTHER, SELFPAY | PROVIDERS: PCP Nurse Practitioner Family | DX: Z45.02 Encounter for adjustment and management of automatic implantable cardiac defibrillator (principal) | CPT/HCPCS: 93283 ==

== ENCOUNTER → 2022-03-25 10:48 | Outpatient (BNVA) | payer OTHER, SELFPAY | PROVIDERS: PCP Nurse Practitioner Family | DX: Z45.02 Encounter for adjustment and management of automatic implantable cardiac defibrillator (principal) | CPT/HCPCS: 93283 ==

== ENCOUNTER → 2022-07-05 08:21 | Outpatient (BNVA) | payer OTHER, SELFPAY | PROVIDERS: PCP Nurse Practitioner Family; Visit Provider Internal Medicine | DX: Z45.02 Encounter for adjustment and management of automatic implantable cardiac defibrillator (principal) | CPT/HCPCS: 93296 ==

== ENCOUNTER 2022-08-23 12:40 | Emergency (ER) | payer OTHER, SELFPAY ==
[2022-08-23] VITALS (8 sets, daily range): BP systolic 158–217; BP diastolic 110–140; PULSE 63–71; RESP 14–16; TEMP 36.7; O2SAT 96–98; BMI 39.1
--- NOTE | 2022-08-23 12:49 | ECG_ITS ---
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 Measurements Intervals [place] Rate: 71 P: 5 CT: 203 QRS: 40 QRSD: 170 T: 29 QT: 495 QTc: 539 Interpretive Statements SINUS RHYTHM POSSIBLE LEFT ATRIAL ENLARGEMENT [-0.1mV P-WAVE IN V1/V2] INTRAVENTRICULAR CONDUCTION DELAY [130+ ms QRS DURATION] INFERIOR MYOCARDIAL INFARCTION , PROBABLY OLD [40+ ms Q WAVE AND/OR ST/T ABNORMALITY IN II/aVF] Compared to ECG 08/13/2021 23:21:22 Atrial flutter no longer present Ventricular premature complex(es) no longer present Myocardial infarct finding still present Electronically Signed On 08-23-2022 16:50:11 CDT by Nesha Pineda M.D. [id number]
--- NOTE | 2022-08-23 13:02 | XRR_ITS ---
PROCEDURE INFORMATION: Exam: XR Chest Exam date and time: 08/23/2022 1:09 PM Age: 56 years old Clinical indication: Pain; Angina pectoris; Prior surgery; Surgery date: 6+ months; Surgery type: Pacemaker; Additional info: Chest pain TECHNIQUE: Imaging protocol: Radiologic exam of the chest. Views: 1 view. COMPARISON: CR XR chest 1V portable [id number] 08/17/2021 2:39 PM FINDINGS: Lungs: Unremarkable. No consolidation. Pleural spaces: Unremarkable. No pleural effusion. No pneumothorax. Heart/Mediastinum: Unremarkable. No cardiomegaly. Bones/joints: Metallic sternotomy wires are present. Cardiac device left anterior chest. Prior examination showed a right central line which has now been removed. The examination is otherwise similar XR/XR chest 1V portable [id number] IMPRESSION: No acute findings. Stable metallic sternotomy wires Cardiac device left anterior chest
--- NOTE | 2022-08-23 13:32 | W.ED.CHESTPA ---
HPI - Chest Pain General: Chief Complaint: Chest Pain Stated Complaint: chest pain, left arm numbness, weakness Time Seen by Provider: 08/23/22 13:02 History of Present Illness: Patient presents to the ER with history of left-sided chest pain that radiates up into his neck worsened with exertion. Patient says his heart has been palpating and he feel his beating up into his throat. Patient has a history of A-fib and is currently on amiodarone and Eliquis. Patient does have a history of coronary artery disease with a bypass and stents in the past and a pacemaker approximately 1 year ago. 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 Onset (ago): week(s) (1 week) Timing of current episode: episodic and constant Prior episodes: Yes Onset: during rest Pain location: left chest Pain radiation: neck Severity: mild Pain scale (0-10): 1 Quality: aching Relieving factors: rest Exacerbating factors: exertion Associated symptoms: Reports leg edema (Did not take his Lasix this morning); Deny abdominal pain, diaphoresis, dyspnea, fever(s), nausea, palpitations, sense of impending doom, syncope or vomiting Review of Systems General: Reports: 10 or more systems reviewed and unremarkable except in HPI and below Const: Denies: fever(s) or diaphoresis Card: Denies: palpitations or syncope Resp: Denies: dyspnea GI: Denies: abdominal pain, nausea or vomiting [facility] ED PFSH: Medical History Chronic anticoagulation Coronary artery disease Diabetes Paroxysmal A-fib Surgical History Hx of CABG [facility] hosp in [facility] Physical Exam Const: COMMON NORMALS: no acute distress, patient oriented x3, no limitations, healthy appearing, alert and well nourished HENMT: COMMON NORMALS: normocephalic, atraumatic, hearing grossly normal bilaterally, external ears normal, Normal external nose present and moist oral mucous membranes HEAD & SCALP: normocephalic and atraumatic NOSE: Normal external nose present EXTERNAL EAR: Yes external ears normal Eye: COMMON NORMALS: Equal, round and reactive pupils present, EOMs intact bilaterally, conjunctivae normal and no scleral icterus CONJUNCTIVA: Yes conjunctivae normal PUPIL: Yes Equal, round and reactive pupils present Neck/C-Spine: COMMON NORMALS: full ROM, no lymphadenopathy, no meningeal signs, no JVD and Thyroid normal THYROID: Thyroid normal Lymph: LYMPHATIC: no lymphadenopathy noted and no lymphedema noted Chest: COMMONS NORMALS: normal inspection of the chest CHEST: Yes localized rib tenderness with anteroposterior compression (Left side reproduces the pain) Resp: COMMON NORMALS: normal respiratory effort, No retractions, No use of accessory muscles and clear to auscultation bilaterally AUSCULTATION: clear to auscultation bilaterally Cardio: COMMON NORMALS: no JVD, regular rate, regular rhythm, S1 normal heart sound present, S2 normal heart sound present, No gallops present (Cardio), No clicks present (Cardio), No murmurs present (Cardio) and No rub (Cardio) RATE: regular rate RHYTHM: regular rhythm HEART SOUNDS: S1 normal heart sound present and S2 normal heart sound present GI: COMMON NORMALS: Normal to inspection, nondistended, normoactive bowel sounds present, non-tender, No hepatosplenomegaly present and no masses PALPATION: Yes No hepatosplenomegaly present : COMMON NORMALS: Yes no CVA tenderness BLADDER/KIDNEY EXAM: Yes no CVA tenderness Back/Pelvis: COMMON NORMALS: no CVA tenderness Extremity: NARRATIVE EXTREMITY EXAM: 1+ pitting edema bilateral lower extremities Neuro: COMMON NORMALS: patient oriented x3 SENSORIUM/ORIENTATION: Yes alert MENINGEAL SIGNS: Yes no meningeal signs Course Vital Signs: Vital signs: Vital Signs Temperature 98.1 F 08/23/22 12:51 Pulse Rate 65 08/23/22 17:01 Respiratory Rate 16 08/23/22 17:01 Blood Pressure 158/110 08/23/22 17:01 Pulse Oximetry 96 08/23/22 17:01 Oxygen Delivery Me thod Room Air 08/23/22 17:01 MDM - Chest Pain Medical Decision Making Patient presents to the ER with complaints of palpitations and he thinks he has A-fib. He is worsened with exertion. Patient was worked up with serial EKGs labs and chest x-ray. EKG showed normal sinus rhythm with no acute changes. Lab work was benign, initial troponin was 53 with a 2-hour troponin of 49 for delta of negative for, chest x-ray showed no acute findings. Patient was given 20 mg of labetalol, 20 mg of hydralazine in an effort to lower his blood pressure which is running well over 200 current blood pressure is significantly improved at 158/110 manually. These findings and medications were discussed with the patient. Patient does not want to come inpatient for further evaluation and/or treatment any discussed the risks with this and he is well aware of them. Patient will be discharged home therapy and increase in his medicine including patient should double up on his carvedilol and losartan and check his blood pressure 3 times a day. Patient should follow-up with his PCP in approximately 1 week and keep his cardiology appointment that he has approximately within the next month. Differential Diagnosis Unlikely acute massive pulmonary embolism, acute respiratory failure, acute myocardial infarction, cardiac arrest or sudden cardiac Medical Records I reviewed the patient's medical records. Lab Data I reviewed the patient's lab results. 08/23/22 13:47 08/23/22 13:47 Radiology Impressions Chest X-Ray 08/23/22 13:02 IMPRESSION: No acute findings. Stable metallic sternotomy wires Cardiac device left anterior chest Laboratory Results WBC 7.1 10^3/uL (4.0-10.0) 08/23/22 13:47 RBC 5.01 10^6/uL (4.1-5.3) 08/23/22 13:47 Hgb 15.2 g/dL (11.7-16.6) 08/23/22 13:47 Hct 46.8 % (42.0-52.0) 08/23/22 13:47 MCV 93.4 fl (80-94) 08/23/22 13:47 MCH 30.3 pg (28.0-34.0) 08/23/22 13:47 MCHC 32.5 g/dL (30.0-36.0) 08/23/22 13:47 RDW 13.2 % (12.1-15.1) 08/23/22 13:47 Plt Count 212 10^3/cmm (130-400) 08/23/22 13:47 MPV 10.6 fL (7.4-10.4) H 08/23/22 13:47 Neut % (Auto) 59.8 % 08/23/22 13:47 Lymph % (Auto) 29.4 % 08/23/22 13:47 [place] % (Auto) 6.5 % 08/23/22 13:47 Eos % (Auto) 3.4 % 08/23/22 13:47 Baso % (Auto) 0.6 % 08/23/22 13:47 Neut # (Auto) 4.27 10^3/uL (1.8-7.7) 08/23/22 13:47 Lymph # (Auto) 2.1 10^3/uL (0.8-4.8) 08/23/22 13:47 [place] # (Auto) 0.5 10^3/uL (0.2-0.9) 08/23/22 13:47 Eos # (Auto) 0.2 10^3/uL (0.0-0.8) 08/23/22 13:47 Baso # (Auto) 0.0 10^3/uL (0.0-0.1) 08/23/22 13:47 Nucleated RBC % (auto) 0 % 08/23/22 13:47 Nucleated RBCs # 0.0 /100WBC 08/23/22 13:47 PT 14.20 SECONDS (12.1-14.9) 08/23/22 13:47 INR 1.07 (0.8-1.2) 08/23/22 13:47 Sodium 142 mmol/L (136-145) 08/23/22 13:47 Potassium 3.8 mmol/L (3.5-5.1) 08/23/22 13:47 Chloride 102 mmol/L (98-107) 08/23/22 13:47 Carbon Dioxide 29 mmol/L (22-29) 08/23/22 13:47 Anion Gap 14.8 (5-19) 08/23/22 13:47 BUN 8 mg/dL (6-20) 08/23/22 13:47 Creatinine 0.7 mg/dL (0.7-1.2) 08/23/22 13:47 GFR Calculation 115.8 mL/min (90-130) 08/23/22 13:47 Glucose 99 mg/dL (65-115) 08/23/22 13:47 Calculated Osmolality 292 mOsm/kg (285-295) 08/23/22 13:47 Calcium 9.3 mg/dL (8.5-10.5) 08/23/22 13:47 Total Bilirubin 0.8 mg/dL (0.15-1.2) 08/23/22 13:47 AST 24 U/L (0-40) 08/23/22 13:47 ALT 31 U/L (0-41) 08/23/22 13:47 Alkaline Phosphatase 113 U/L (40-130) 08/23/22 13:47 Troponin T Baseline 53 ng/L (0-15) H 08/23/22 13:47 Troponin T 120 Minute 49.43 ng/L (0-15) H 08/23/22 15:27 Delta Troponin T -3.57 ABS# (0-10) L 08/23/22 15:27 Total Protein 6.8 g/dL (6.6-8.7) 08/23/22 13:47 Albumin 4.6 g/dL (3.5-5.2) 08/23/22 13:47 Globulin 2.2 g/dL (1.3-4.6) 08/23/22 13:47 Urine Color Yellow (Yellow) 08/23/22 14:11 Urine Appearance Clear (CLEAR) 08/23/22 14:11 Urine pH 7 (5-7) 08/23/22 14:11 Ur Specific [place] 1.010 (1.005-1.030) 08/23/22 14:11 Urine Protein Neg (Negative) 08/23/22 14:11 Urine Glucose (UA) Norm (Normal) 08/23/22 14:11 Urine Ketones Negative (Negative) 08/23/22 14:11 Urine Blood Neg (Negative) 08/23/22 14:11 Urine Nitrate Negative (Negative) 08/23/22 14:11 Urine Bilirubin Neg (Negative) 08/23/22 14:11 Urine Urobilinogen Norm mg/dL (Negative) 08/23/22 14:11 Ur Leukocyte Esterase Negative (Negative) 08/23/22 14:11 EKG Data EKG 1: I personally reviewed and interpreted this EKG as follows: EKG interpretation date: 08/23/22 EKG interpretation time: 12:49 Prior EKG tracings: not available for review Interpretation: EKG showed normal sinus rhythm with a ventricular rate of 71 beats a minute, WA interval at 203, QRS duration 170, QTc of 517, possible left atrial argument, intraventricular conduction delay, inferior CA probably old with Q waves or ST T wave abnormalities in leads II and aVF. EKG 2: I personally reviewed and interpreted this EKG as follows: EKG interpretation date: 08/23/22 EKG interpretation time: 15:20 Prior EKG tracings: available for review Interpretation: EKG shows ventricular rate of 64 bpm, WA interval 192, QRS duration 171, QTc of 542 comments normal sinus rhythm, probable left atrial enlargement, intraventricular conduction delay, inferior myocardial infarction probably old Q waves and/or ST T wave abnormalities in leads II and aVF Discharge Plan Discharge Patient Disposition: Home Clinical Impression: Heart palpitations, Atypical chest pain, Hypertension Condition: Stable Prescriptions: No Action Eliquis 5 mg Tablet 5 mg PO BID losartan 50 mg Tablet 12.5 mg PO DAILY Qty: 30 0RF furosemide 40 mg Tablet 40 mg PO BID@08,16 Qty: 60 0RF atorvastatin 40 mg Tablet 20 mg PO BEDTIME Qty: 30 0RF carvedilol 6.25 mg Tablet 6.25 mg PO BID@0900,2100 Qty: 60 0RF amiodarone [Pacerone] 200 mg Tablet 200 mg PO BID Qty: 60 0RF potassium chloride [Klor-Con M20] 20 mEq Tablet,Er Particles/Crystals 20 meq PO BID Qty: 60 0RF magnesium oxide 400 mg magnesium tablet 400 mg PO BID Qty: 60 0RF meloxicam 15 mg Tablet 15 mg PO DAILY PRN (Reason: joint pain) pantoprazole 20 mg Tablet,Delayed Release (Dr/Ec) 20 mg PO DAILY ferrous sulfate 325 mg (65 mg iron) Tablet 325 mg PO DAILY Discharge Orders: Discharge ED (Routine); Ordered 08/23/22 Ordered By: Tyler Weber Referrals: Melani Dailey APRN-BC [Primary Care Provider] - Patient Instructions: Hypertension (ED), Noncardiac Chest Pain (ED), Heart Palpitations (ED) Activity Restrictions/Additional Instructions: Please check your blood pressure 3 times a day and keep a blood pressure log and take it to your next appointment with your primary care doctor. Please follow-up with your primary care doctor within next 7 to 10 days. Please double up on your carvedilol and take 2 pills twice a day and also double up on your losartan and take 2 pills once a day. 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
[2022-08-23 14:06] LABS: Basophils % 0.6 %; Eosinophils # 0.2 10^3/uL (0.0-0.8); Eosinophils % 3.4 %; Hematocrit 46.8 % (42.0-52.0); Hemoglobin 15.2 g/dL (11.7-16.6); Lymphocytes # 2.1 10^3/uL (0.8-4.8); Lymphocytes % 29.4 %; Mean Corpuscular HGB Conc 32.5 g/dL (30.0-36.0); Mean Corpuscular Hemoglobin 30.3 pg (28.0-34.0); Mean Corpuscular Volume 93.4 fl (80-94); Mean Platelet Volume 10.6 fL (7.4-10.4); Monocytes # 0.5 10^3/uL (0.2-0.9); Monocytes % 6.5 %; Neutrophils # 4.27 10^3/uL (1.8-7.7); Neutrophils % 59.8 %; Nucleated Red Blood Cells % 0 %; Platelet Count 212 10^3/cmm (130-400); Red Blood Count 5.01 10^6/uL (4.1-5.3); Red Cell Distribution Width 13.2 % (12.1-15.1); White Blood Count 7.1 10^3/uL (4.0-10.0)
[2022-08-23 14:19] LABS: INR 1.07 (0.8-1.2)
[2022-08-23 14:25] LABS: Add Urine Microscopic? NO; Charge for UA Resulting for Rev
[2022-08-23 14:27] LABS: Troponin(5th) Baseline 53 ng/L (0-15)
[2022-08-23 14:28] LABS: Alanine Aminotransferase 31 U/L (0-41); Albumin Level 4.6 g/dL (3.5-5.2); Alkaline Phosphatase 113 U/L (40-130); Anion Gap 14.8 (5-19); Aspartate Amino Transferase 24 U/L (0-40); Blood Urea Nitrogen 8 mg/dL (6-20); Calcium 9.3 mg/dL (8.5-10.5); Carbon Dioxide 29 mmol/L (22-29); Chloride 102 mmol/L (98-107); Globulin 2.2 g/dL (1.3-4.6); Glomerular Filtration Rate 115.8 mL/min (90-130); Glucose 99 mg/dL (65-115); Osmolality Calculated 292 mOsm/kg (285-295); Potassium 3.8 mmol/L (3.5-5.1); Sodium 142 mmol/L (136-145); Total Bilirubin 0.8 mg/dL (0.15-1.2); Total Protein 6.8 g/dL (6.6-8.7)
[2022-08-23 14:29] LABS: Bilirubin Urine Neg (Negative); Blood Urine Neg (Negative); Glucose Urine UA Norm (Normal); Ketones Urine Negative (Negative); Leukocyte Esterase Urine Negative (Negative); Nitrate Urine Negative (Negative); Protein Urine Neg (Negative); Urine Appearance Clear (CLEAR); Urine Color Yellow (Yellow); Urobilinogen Urine Norm (Negative); pH Urine 7 (5-7)
--- NOTE | 2022-08-23 15:03 | ECG_ITS ---
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 Measurements Intervals Dwarf Rate: 64 P: 2 IA: 192 QRS: 76 QRSD: 171 T: 18 QT: 532 QTc: 552 Interpretive Statements SINUS RHYTHM POSSIBLE LEFT ATRIAL ENLARGEMENT [-0.1mV P-WAVE IN V1/V2] INTRAVENTRICULAR CONDUCTION DELAY [130+ ms QRS DURATION] INFERIOR MYOCARDIAL INFARCTION , PROBABLY OLD [40+ ms Q WAVE AND/OR ST/T ABNORMALITY IN II/aVF] Compared to ECG 08/23/2022 12:49:58 No significant changes Electronically Signed On 08-23-2022 16:51:59 CDT by Nesha Pineda M.D. [email or web address]
[2022-08-23] MEDS: hyDRALAzine 20 mg/mL INJ 1 mL IVP (15:23)
[2022-08-23 15:51] LABS: Troponin 5 2HR 49.43 ng/L (0-15)
[2022-08-23 15:54] LABS: Troponin 5 2HR Delta -3.57 ABS# (0-10)
[2022-08-23] MEDS: labetalol 5 mg/mL SDV 20mL 20 MG IVP (16:06)
== END 2022-08-23 17:43 | disposition home or self-care (01) ==
PROVIDERS: Emergency Provider Emergency Medicine; PCP Nurse Practitioner Family
DX: R00.2 Palpitations (principal); R07.89 Other chest pain; I10 Essential (primary) hypertension
CPT/HCPCS: 71045; 80053; 81003; 84484; 85025; 85610; 93005; 96374; 96375; 99285; J0360; J3490

== ENCOUNTER → 2022-10-05 15:48 | Outpatient (BNVA) | payer OTHER, SELFPAY | PROVIDERS: PCP Nurse Practitioner Family; Visit Provider Internal Medicine | DX: Z45.02 Encounter for adjustment and management of automatic implantable cardiac defibrillator (principal) | CPT/HCPCS: 93296 ==

== ENCOUNTER → 2022-11-28 11:47 | Outpatient (BNVA) | payer OTHER, SELFPAY | PROVIDERS: PCP Nurse Practitioner Family; Visit Provider Internal Medicine | DX: I42.9 Cardiomyopathy, unspecified (principal); E11.9 Type 2 diabetes mellitus without complications; I49.01 Ventricular fibrillation; I48.0 Paroxysmal atrial fibrillation; I50.9 Heart failure, unspecified; I25.10 Atherosclerotic heart disease of native coronary artery without angina pectoris; Z86.74 Personal history of sudden cardiac arrest; Z79.01 Long term (current) use of anticoagulants | CPT/HCPCS: 99214 ==

== ENCOUNTER → 2023-06-02 11:21 | Outpatient (BNVA) | payer OTHER, SELFPAY | PROVIDERS: PCP Nurse Practitioner Family; Visit Provider Internal Medicine | DX: Z53.9 Procedure and treatment not carried out, unspecified reason (principal) | CPT/HCPCS: 93280 ==

== ENCOUNTER → 2023-09-05 12:50 | Outpatient (BNVA) | payer OTHER, SELFPAY | PROVIDERS: PCP Nurse Practitioner Family | DX: Z45.02 Encounter for adjustment and management of automatic implantable cardiac defibrillator (principal) | CPT/HCPCS: 93296 ==